=== PATIENT | female | born 1935 | race Caucasian/White ===

== ENCOUNTER 2017-11-01 12:17 | Inpatient (IN) | payer MEDICARE, SELFPAY ==
[~2017-11-01] VITALS: Ht 149.9 cm; Wt 69.6 kg
[~2017-11-01 12:17] MED LIST: ALBU90OI61 INH; ASPI325 PO; CLOP75 PO; ELOCON15 GM TOP; FAMO20 PO; FLONASE ALLERG9.9 ML; FLUT.05NI; FURO20 PO; Flonase 0.05% N16 GM; HYDACE5 PO; LEVSOD100 PO; LEVSOD75 PO; LISHYD1012 PO; LIVALO2 MG PO; OMEP20ER PO; ONDA8; OXYACE5T PO; PAXIL40 MG PO; POTA10T PO; Percocet 5-3251 EACH PO; ROPI2 PO; VICODIN 5-3001 EACH PO; Ventolin Soln3 ML INH; Verotin-Gr Cap1 EACH PO
[2017-11-02 06:01] LABS: BASOPHILS ABSOLUTE AUTO 0.02 K/mm3 (0.00-0.23); BASOPHILS PERCENT AUTO 0 % (0-2); EOSINOPHILS ABSOLUTE AUTO 0.13 K/mm3 (0.00-0.68); EOSINOPHILS PERCENT AUTO 1 % (0-6); Hematocrit 33.5 % (33.0-51.0); Hemoglobin 10.8 g/dL (11.5-16.0); IMMATURE GRAN ABSOLUTE AUTO 0.03 K/mm3 (0.00-0.10); IMMATURE GRAN PERCENT AUTO 0 % (0-1); LYMPHOCYTES PERCENT AUTO 15 % (21-46); MONOCYTES ABSOLUTE AUTO 1.21 K/mm3 (0.16-1.47); MONOCYTES PERCENT AUTO 13 % (4-13); Mean Corpuscular HGB 29.6 pg (26.0-34.0); Mean Corpuscular HGB Conc 32.2 g/dL (31.5-36.5); Mean Corpuscular Volume 92 fL (80-100); Mean Platelet Volume 8.7 fL (9.1-12.4); NEUTROPHILS ABSOLUTE AUTO 6.55 K/mm3 (1.96-9.15); NEUTROPHILS PERCENT AUTO 70 % (41-73); Platelet Count 293 K/mm3 (150-400); RDW Coefficient Variation 13.4 % (11.7-14.2); RDW Standard Deviation 44.7 fL (35.1-46.3); Red Blood Cell Count 3.65 M/mm3 (3.80-5.20); White Blood Cell Count 9.34 K/mm3 (4.00-11.30)
[2017-11-02 06:21] LABS: Bun/Creatinine Ratio 20.9 (12.0-20.0); Calcium, Blood 9.2 mg/dL (8.5-10.1); Creatinine, Blood 1.1 mg/dL (0.40-1.00); Potassium, Blood 4.3 mmol/L (3.5-5.5)
[2017-11-05 10:50] LABS: Anion Gap 8 mmol/L (6-16); Blood Urea Nitrogen 23 mg/dL (8-24); Bun/Creatinine Ratio 29.3 (12.0-20.0); CO2, Blood 27 mmol/L (21-32); Calcium, Blood 9.3 mg/dL (8.5-10.1); Chloride, Blood 102 mmol/L (98-108); Creatinine, Blood 0.79 mg/dL (0.40-1.00); Glomerular Filtration Rate >60 (60-); Glucose, Blood 132 mg/dL (70-99); Potassium, Blood 3.8 mmol/L (3.5-5.5); Sodium, Blood 137 mmol/L (136-145)
== END 2017-11-07 14:13 | DRG 504 ==
LOC: ORSCMMR 12:17 → ORSCSDS 15:00 → SURS 16:21 → ORSCMMR 16:21 → ENPENDDIS 11-07 12:07 → SURS 11-07 14:13
PROVIDERS: Internal Medicine; Podiatrist Foot & Ankle Surgery
PROC: 0QBL0ZZ Excision of Right Tarsal, Open Approach (ICD-10-PCS; principal; 2017-11-01 14:10)
DX: M14.671 Charcot's joint, right ankle and foot (principal); L97.419 Non-pressure chronic ulcer of right heel and midfoot with unspecified severity; G62.9 Polyneuropathy, unspecified; E03.9 Hypothyroidism, unspecified; I25.2 Old myocardial infarction; I25.10 Atherosclerotic heart disease of native coronary artery without angina pectoris; K21.9 Gastro-esophageal reflux disease without esophagitis; E74.39 Other disorders of intestinal carbohydrate absorption; J44.9 Chronic obstructive pulmonary disease, unspecified; G25.81 Restless legs syndrome; I12.9 Hypertensive chronic kidney disease with stage 1 through stage 4 chronic kidney disease, or unspecified chronic kidney disease; N18.2 Chronic kidney disease, stage 2 (mild); Z79.02 Long term (current) use of antithrombotics/antiplatelets; Z79.891 Long term (current) use of opiate analgesic; Z79.51 Long term (current) use of inhaled steroids; Z79.899 Other long term (current) drug therapy; Z88.1 Allergy status to other antibiotic agents; Z95.5 Presence of coronary angioplasty implant and graft; Z88.5 Allergy status to narcotic agent; Z88.8 Allergy status to other drugs, medicaments and biological substances
CPT/HCPCS: 36415; 73620; 80048; 85025; 88304; 88311; 94760; 97161; 97530; G8978; G8979; J0171; J0690; J1650; J2250; J2405; J3010; J7030; J7050; J7120

== ENCOUNTER → 2018-12-27 | Outpatient (CLI) | payer MEDICARE ==
[2018-12-27 12:11] LABS: BASOPHILS ABSOLUTE AUTO 0.05 K/mm3 (0.00-0.23); BASOPHILS PERCENT AUTO 1 % (0-2); EOSINOPHILS ABSOLUTE AUTO 0.51 K/mm3 (0.00-0.68); EOSINOPHILS PERCENT AUTO 7 % (0-6); Hematocrit 30.2 % (33.0-51.0); Hemoglobin 9.7 g/dL (11.5-16.0); IMMATURE GRAN ABSOLUTE AUTO 0.02 K/mm3 (0.00-0.10); IMMATURE GRAN PERCENT AUTO 0 % (0-1); LYMPHOCYTES ABSOLUTE AUTO 1.33 K/mm3 (0.84-5.20); LYMPHOCYTES PERCENT AUTO 19 % (21-46); MONOCYTES ABSOLUTE AUTO 0.94 K/mm3 (0.16-1.47); MONOCYTES PERCENT AUTO 13 % (4-13); Mean Corpuscular HGB 28.7 pg (26.0-34.0); Mean Corpuscular HGB Conc 32.1 g/dL (31.5-36.5); Mean Corpuscular Volume 89 fL (80-100); Mean Platelet Volume 9.2 fL (9.1-12.4); NEUTROPHILS ABSOLUTE AUTO 4.26 K/mm3 (1.96-9.15); NEUTROPHILS PERCENT AUTO 60 % (41-73); Platelet Count 305 K/mm3 (150-400); RDW Coefficient Variation 13.4 % (11.7-14.2); RDW Standard Deviation 43.7 fL (35.1-46.3); Red Blood Cell Count 3.38 M/mm3 (3.80-5.20); White Blood Cell Count 7.11 K/mm3 (4.00-11.30)
[2018-12-27 12:44] LABS: Albumin, Blood 3.5 g/dL (3.4-5.0); Bilirubin, Total 0.4 mg/dL (0.1-1.0); Bun/Creatinine Ratio 17.8 (12.0-20.0); Calcium, Blood 9.1 mg/dL (8.5-10.1); Creatinine, Blood 1.8 mg/dL (0.40-1.00); Globulin, Blood 3.5 g/dL (2.2-4.0); Potassium, Blood 4.1 mmol/L (3.5-5.5)
== END | disposition home or self-care (01) ==
LOC: LAB SHORT 11:54 → LAB EV 11:54
PROVIDERS: Physician Assistant Medical
DX: N39.0 Urinary tract infection, site not specified (principal); R60.0 Localized edema
CPT/HCPCS: 80053; 85025; 85379; 87086

== ENCOUNTER 2019-02-12 23:10 | Emergency (ER) | payer MEDICARE, OTHER ==
[~2019-02-12] VITALS: Ht 147.3 cm; Wt 73.5 kg
[2019-02-12 23:42] LABS: BASOPHILS ABSOLUTE AUTO 0.05 K/mm3 (0.00-0.23); BASOPHILS PERCENT AUTO 1 % (0-2); EOSINOPHILS PERCENT AUTO 9 % (0-6); Hematocrit 28.1 % (33.0-51.0); Hemoglobin 8.5 g/dL (11.5-16.0); IMMATURE GRAN ABSOLUTE AUTO 0.02 K/mm3 (0.00-0.10); IMMATURE GRAN PERCENT AUTO 0 % (0-1); LYMPHOCYTES ABSOLUTE AUTO 1.02 K/mm3 (0.84-5.20); LYMPHOCYTES PERCENT AUTO 14 % (21-46); MONOCYTES ABSOLUTE AUTO 1.04 K/mm3 (0.16-1.47); MONOCYTES PERCENT AUTO 14 % (4-13); Mean Corpuscular HGB 28.3 pg (26.0-34.0); Mean Corpuscular HGB Conc 30.2 g/dL (31.5-36.5); Mean Corpuscular Volume 94 fL (80-100); NEUTROPHILS ABSOLUTE AUTO 4.65 K/mm3 (1.96-9.15); NEUTROPHILS PERCENT AUTO 62 % (41-73); Platelet Count 340 K/mm3 (150-400); RDW Coefficient Variation 14.5 % (11.7-14.2); RDW Standard Deviation 49.8 fL (35.1-46.3); White Blood Cell Count 7.48 K/mm3 (4.00-11.30)
[2019-02-12] MEDS ORDERED: BUPR75 PO (23:58)
[2019-02-12] MEDS ORDERED: ELIQUIS5 MG PO (23:58)
[2019-02-13 00:01] LABS: Albumin, Blood 3.4 g/dL (3.4-5.0); Bilirubin, Total 0.2 mg/dL (0.1-1.0); Bun/Creatinine Ratio 18.6 (12.0-20.0); Calcium, Blood 9.1 mg/dL (8.5-10.1); Creatinine, Blood 1.88 mg/dL (0.40-1.00); Globulin, Blood 3.4 g/dL (2.2-4.0); Potassium, Blood 4.1 mmol/L (3.5-5.5); Total Protein, Blood 6.8 g/dL (6.4-8.2)
[2019-02-13] MEDS ORDERED: BENADRYL25 MG PO (00:53)
[2019-02-13] MEDS ORDERED: Pepcid20 MG PO (00:53)
[2019-02-13] MEDS ORDERED: Prednisone20 MG PO (00:53)
== END 2019-02-13 01:32 | disposition home or self-care (01) ==
LOC: ER 23:10
PROVIDERS: Emergency Medicine
DX: T78.40XA Allergy, unspecified, initial encounter (principal); N18.9 Chronic kidney disease, unspecified; D63.8 Anemia in other chronic diseases classified elsewhere; J44.9 Chronic obstructive pulmonary disease, unspecified; E03.9 Hypothyroidism, unspecified; F17.210 Nicotine dependence, cigarettes, uncomplicated; Z79.899 Other long term (current) drug therapy; X58.XXXA Exposure to other specified factors, initial encounter
CPT/HCPCS: 36415; 71046; 80053; 83880; 85025; 93005; 93010; 94640; 96374; 96375; 99283-25; J1200; J2930

== ENCOUNTER 2019-04-06 11:52 | Inpatient (IN) | payer MEDICARE, OTHER ==
[~2019-04-06] VITALS: Ht 147.3 cm; Wt 65.2 kg
[~2019-04-06 11:52] MED LIST changes: +BENADRYL25 MG PO; +BUPR75 PO; +ELIQUIS5 MG PO; +Nystatin15 GM TOP; +Pepcid20 MG PO; +Prednisone20 MG PO; -ROPI2 PO; +Ropinirole HCl1 MG PO; +WARF5 PO; +ZYRTEC10 M2 PO
[2019-04-06 12:27] LABS: Hemoglobin 7.2 g/dL (11.5-16.0); Mean Corpuscular HGB 25.8 pg (26.0-34.0); Mean Corpuscular Volume 86 fL (80-100); NRBC ABSOLUTE 0.79 K/mm3 (0.00-0.02); NRBC Auto 2.3 /100 WBC (0.0-0.2); Platelet Count 529 K/mm3 (150-400); RDW Coefficient Variation 15.8 % (11.7-14.2); RDW Standard Deviation 49.1 fL (35.1-46.3); Red Blood Cell Count 2.79 M/mm3 (3.80-5.20); White Blood Cell Count 34.59 K/mm3 (4.00-11.30)
[2019-04-06 12:48] LABS: Prothrombin Time Results 47.6 Sec (9.7-11.5)
[2019-04-06 12:49] LABS: PCO2 Arterial 35.4 mmHg (35-45); PO2 Arterial 58.3 mmHg (80-100)
[2019-04-06 12:52] LABS: Albumin, Blood 2.6 g/dL (3.4-5.0); Albumin/Globulin Ratio 0.7 (0.8-1.8); Bilirubin, Total 0.4 mg/dL (0.1-1.0); Bun/Creatinine Ratio 38.5 (12.0-20.0); Calcium, Blood 9.7 mg/dL (8.5-10.1); Creatinine, Blood 1.87 mg/dL (0.40-1.00); Globulin, Blood 3.9 g/dL (2.2-4.0); Potassium, Blood 4.4 mmol/L (3.5-5.5); Total Protein, Blood 6.5 g/dL (6.4-8.2); Troponin I 0.117 ng/mL (0.000-0.040)
[2019-04-06 12:53] LABS: BAND PERCENT MAN 1 % (0-8); BASOPHILS PERCENT MAN 0 % (0-2); EOSINOPHILS ABSOLUTE MAN 0.34 K/mm3 (0.00-0.68); EOSINOPHILS PERCENT MAN 1 % (0-6); LYMPHOCYTES ABSOLUTE MAN 2.76 K/mm3 (0.84-5.20); LYMPHOCYTES PERCENT MAN 8 % (21-46); MONOCYTES ABSOLUTE MAN 1.03 K/mm3 (0.16-1.47); MONOCYTES PERCENT MAN 3 % (4-13); MYELOCYTE ABSOLUTE MAN 0.34 K/mm3 (0.00-0.00); MYELOCYTE PERCENT MAN 1 % (0-0); NEUTROPHILS ABSOLUTE MAN 30.09 K/mm3 (1.96-9.15); SEG NEUTROPHILS PERCENT MAN 86 % (41-73); TOTAL CELLS COUNTED 100
[2019-04-06 12:57] LABS: International Normalized Ratio 5.22
[2019-04-06] MEDS ORDERED: FAMO20 PO (13:59)
[2019-04-06] MEDS ORDERED: GABA300 PO (14:00)
--- NOTE | 2019-04-06 16:30 | NUR ---
ADMIT TO ICU, ROOM 12, VIA DEIRDRE FROM ER: DX--RLL PNEUM, SEPSIS, HYPOXIA, ACUTE KIDNEY INJURY, SEVERE ANEMIA AND C. ISCHEMIA. PATIENT A/O X3; DENIES PAIN EXCEPT WITH MOVEMENT. ARTHRITIC PAIN AND PAIN TO FEET D/T BONE ISSUES; NO OPENED SKIN. LUNGS COARSE AND COUGH MOIST AND PRODUCTIVE; HAVING LARGE AMOUNTS OF PHLEGM AND SPITS INTO KLEENEX. OXYGEN AT 4L/MIN VIA NC. SEVERE EXERTIONAL HYPOXIA EVEN WITH OXYGEN. INR PROLONGED AND COUMADIN ON HOLD SINCE MONDAY. BNP AROUND 1500; NO IVF'S GIVEN OTHER THAN ANTIBIOTICS. ANEMIC AND TO RECEIVE BLOOD TRANSFUSIONS. DR. FINK ARRIVED SHORTLY AFTER ARRIVAL TO ICU; SEE MULTIPLE ORDERS. EDEMA TO LE'S ABOUT 2-3 + PITTING; DAUGHTER, HARMONY, STATES PATIENTS' LEGS ARE USUALLY 2X LARGER/SWOLLEN.
--- NOTE | 2019-04-06 18:00 | NUR ---
HUTTON CATHETER PLACED (16FR) WITHOUT INCIDENT; PATIENT TRIED TO VOID ON BEDPAN SEVERAL TIMES SINCE ARRIVAL TO ICU AND UNABLE TO VOID; TO RECEIVE DIURETIC THERAPY SOON; ORDER OK'D FOR HUTTON CATHETER; PATIENT WITH SEVERE HYPOXIA WITH ANY EXERTION (TO INCLUDE SPEAKING). POST CATH. UA SENT TO LAB.
[2019-04-06 18:43] LABS: Source, Urine Catheter
--- NOTE | 2019-04-06 18:45 | NUR ---
DAUGHTER WENT HOME; PATIENT EATING CARDIAC DINNER. OXYMIZER AT 7L/MIN AND INCREASED TO 10L/MIN DURING MEAL; BIOX 89-91%. SBP LOW 90'S TO LOW 100'S; HR 90'S. WILL REPORT TO ONCOMING RN.
[2019-04-06 19:05] LABS: Appearance, Urine Clear (Clear); Bilirubin, Urine Neg (Neg); Blood, Urine 1+ (Neg); Color, Urine Yellow (P-Yellow); Glucose Qualitative, Urine Neg (Neg); Ketones, Urine Neg (Neg); Leukocyte Esterase, Urine Neg (Neg); Nitrite, Urine Neg (Neg); Protein, Urine 1+ (Neg); Specific Gravity, Urine 1.015 (1.003-1.022); Urobilinogen, Urine NORM (Normal)
[2019-04-06 19:16] LABS: Hematocrit 23.7 % (33.0-51.0)
[2019-04-06 19:44] LABS: Squamous Epithelial Cells Few /hpf (Few)
[2019-04-06 19:45] LABS: Bacteria Few /hpf; Red Blood Cells, Urine 0-2 /hpf (0-2); White Blood Cells, Urine 0-2 /hpf (0-5)
[2019-04-06 19:46] LABS: Creatine Kinase MB 7.4 ng/mL (0.0-3.6); Creatine Kinase MB Index 13.7 (0.0-4.0)
[2019-04-06 19:55] LABS: Thyroid Stimulating Hormone 0.278 uIU/mL (0.360-4.800)
--- NOTE | 2019-04-06 20:03 | NUR ---
PT RESTING IN BED. GETS SOB WITH TALKING OR ANY EXERTION. ON 10L HIGH FLOW NC. PRBC'S STARTED. SEE ASSESSMENT.
[2019-04-06 20:21] LABS: Troponin I 0.594 ng/mL (0.000-0.040)
[2019-04-07 04:04] LABS: Hematocrit 28.5 % (33.0-51.0); Hemoglobin 9.3 g/dL (11.5-16.0)
[2019-04-07 04:05] LABS: BASOPHILS ABSOLUTE AUTO 0.05 K/mm3 (0.00-0.23); BASOPHILS PERCENT AUTO 0 % (0-2); EOSINOPHILS PERCENT AUTO 0 % (0-6); Hematocrit 28.6 % (33.0-51.0); Hemoglobin 9.2 g/dL (11.5-16.0); IMMATURE GRAN ABSOLUTE AUTO 1.35 K/mm3 (0.00-0.10); IMMATURE GRAN PERCENT AUTO 5 % (0-1); LYMPHOCYTES ABSOLUTE AUTO 1.12 K/mm3 (0.84-5.20); LYMPHOCYTES PERCENT AUTO 4 % (21-46); MONOCYTES PERCENT AUTO 4 % (4-13); Mean Corpuscular HGB 26.8 pg (26.0-34.0); Mean Corpuscular HGB Conc 32.2 g/dL (31.5-36.5); Mean Platelet Volume 8.8 fL (9.1-12.4); NEUTROPHILS ABSOLUTE AUTO 23.93 K/mm3 (1.96-9.15); NEUTROPHILS PERCENT AUTO 87 % (41-73); NRBC ABSOLUTE 0.53 K/mm3 (0.00-0.02); NRBC Auto 1.9 /100 WBC (0.0-0.2); Platelet Count 314 K/mm3 (150-400); RDW Coefficient Variation 15.6 % (11.7-14.2); RDW Standard Deviation 46.9 fL (35.1-46.3); Red Blood Cell Count 3.43 M/mm3 (3.80-5.20); White Blood Cell Count 27.55 K/mm3 (4.00-11.30)
[2019-04-07 04:07] LABS: Mean Corpuscular Volume 83 fL (80-100)
[2019-04-07 04:27] LABS: Albumin, Blood 2.3 g/dL (3.4-5.0); Albumin/Globulin Ratio 0.6 (0.8-1.8); Bilirubin, Total 0.7 mg/dL (0.1-1.0); Bun/Creatinine Ratio 36.6 (12.0-20.0); Calcium, Blood 9.1 mg/dL (8.5-10.1); Creatinine, Blood 1.75 mg/dL (0.40-1.00); Globulin, Blood 3.8 g/dL (2.2-4.0); Magnesium, Blood 2.1 mg/dL (1.6-2.4); Prothrombin Time Results 55.5 Sec (9.7-11.5); Total Protein, Blood 6.1 g/dL (6.4-8.2)
[2019-04-07 04:32] LABS: International Normalized Ratio 6.18
[2019-04-07 04:38] LABS: Creatine Kinase MB 6.7 ng/mL (0.0-3.6); Creatine Kinase MB Index 15.2 (0.0-4.0)
[2019-04-07 04:41] LABS: Troponin I 1.24 ng/mL (0.000-0.040)
--- NOTE | 2019-04-07 05:58 | NUR ---
SUMMARY PT RESTING IN BED. A/O X4. DENIES PAIN. GETS SOB WITH ANY EXERTION OR TALKING AND DESATS TO 88%. RECEIVED 2 UNITS OF PRBC'S WITH A DOSE OF LASIX IN BETWEEN UNITS. SPOKE WITH DR. AUGUSTIN ABOUT TROPONIN AND INR THIS AM. HE SAID TO KEEP MONITORING HER AND LABS FOR NOW. NO SIGN OF BLEEDING. NO SIGN OF DISTRESS. CALL LIGHT IN REACH.
[2019-04-07 07:13] LABS: Adenovirus Not Detected (NOT DETECT); Bordetella pertussis Not Detected (NOT DETECT); Chlamydophila pneumoniae Not Detected (NOT DETECT); Coronavirus 229E Not Detected (NOT DETECT); Coronavirus HKU1 Not Detected (NOT DETECT); Coronavirus NL63 Not Detected (NOT DETECT); Coronavirus OC43 Not Detected (NOT DETECT); Human Metapneumovirus Not Detected (NOT DETECT); Human Rhinovirus/Enterovirus Not Detected (NOT DETECT); Influenza A Not Detected (NOT DETECT); Influenza A/2009-H1 Not Detected (NOT DETECT); Influenza A/H1 Not Detected (NOT DETECT); Influenza A/H3 Not Detected (NOT DETECT); Influenza B Not Detected (NOT DETECT); Mycoplasma pneumoniae Not Detected (NOT DETECT); Parainfluenza Virus 1 Not Detected (NOT DETECT); Parainfluenza Virus 2 Not Detected (NOT DETECT); Parainfluenza Virus 3 Not Detected (NOT DETECT); Parainfluenza Virus 4 Not Detected (NOT DETECT); Respiratory Syncytial Virus Not Detected (NOT DETECT)
--- NOTE | 2019-04-07 07:15 | NUR ---
ASSUMED CARE OF PATIENT; SEE ASSESSMENT CHARTING FOR DETAILS. PATIENT A/O; DENIES ACUTE DISCOMFORT. CONTINUES WITH MOIST/PRODUCTIVE COUGH. COUGHED UP SPOT OF BLOOD ONTO TISSUE; RN PUT IN CUP TO SHOW PHYSICIAN. REMAINS WITH HIGH FLOW OXYGEN AT 10L/MIN; BIOX 89-91%; DROPS DOWN WITH ANY EXERTION. HUTTON DRAINING MOD. AMOUNTS OF LT. YELLOW URINE. INR INCREASED FROM YESTERDAY; NO COUMADIN GIVEN. PATIENTS' DAUGHTER FROM OUT OF STATE TO ARRIVE TODAY.
[2019-04-07 10:06] LABS: Hematocrit 28.1 % (33.0-51.0); Hemoglobin 9.1 g/dL (11.5-16.0)
--- NOTE | 2019-04-07 10:22 | NUR ---
echocardiogram completed
--- NOTE | 2019-04-07 12:00 | NUR ---
DR. BANKS HERE; SEE ORDERS.
--- NOTE | 2019-04-07 18:46 | NUR ---
SUMMARY: OVERALL STATUS IMPROVED; REMAINS ON 10L/HIGH FLOW OXYGEN; BIOX 89-93% COMPARED WITH 87-91% PREVIOUSLY. DANGLED AND STOOD WITH ASSIST OF P.T.; REQUIRED FREQUENT REST PERIODS D/T HYPOXIC MOMENTS. FEEDS SELF; APPETITE FAIR AND NO GI UPSET. HUTTON PUT OUT 1725; LT. YELLOW TO CLEAR URINE. ECHOCARDIOGRAM SHOWED 35-40% E.F.. DAUGHTERS AND GRAND-DAUGHTER VISITED THIS EVENING; STAYED FOR AWHILE BUT DID NOT WANT TO TIRE PATIENT. WILL REPORT TO ONCOMING RN.
--- NOTE | 2019-04-07 19:15 | NUR ---
ASSUMED CARE OF PT, REPORT RECEIVED. PT IS RESTING QUIETLY RECLINING IN BED, SPEAKING IN FULL SENTANCES HOWEVER INCREASED WORK OF BREATHING IS NOTED WITH PT ATTEMPT TO REPOSITION SELF IN BED. SATS DECREASE TO 84-85% WITH CONVERSATION AND PT REPOSITION, RECOVER TO HIGH 90S WITHIN 5 MINUTES, OXYGEN VIA HIGH FLOW NASAL CANNULA AT 10 L/MIN, PT STATES THAT BREATHING FEELS IMPROVED TODAY, DENIES FEELING SOB AT REST, LUNGS CONTINUE WITH COARSE SOUNDS RIGHT MID TO LOWER LOBE, CONGESTED COUGH CONTINUES TO BE PRODUCTIVE OF GREEN SPUTUM. DENIES CP/PRESSURE, HRR, SINUS ON MONITOR, RATE 90S TO LOW 100S WITH INCREASE IN ACTIVITY, PRESSURE MAINTAINING, PULSES FULL X 4, SKIN WARM AND DRY, BRISK CAP REFILL NOTED, EDEMA IMPROVED PER PT. ACTIVE BOWEL TONES X 4, ABD SOFT, NO GRIMACING WITH PALPATION, PT DENIES N/V. HUTTON CATH IN PLACE DRAINING CLEAR PALE YELLOW URINE TO GRAVITY, LASIX IV ADMIN BY OFFGOING RN.
[2019-04-08 04:09] LABS: BASOPHILS ABSOLUTE AUTO 0.03 K/mm3 (0.00-0.23); BASOPHILS PERCENT AUTO 0 % (0-2); EOSINOPHILS ABSOLUTE AUTO 0.22 K/mm3 (0.00-0.68); EOSINOPHILS PERCENT AUTO 1 % (0-6); Hematocrit 29.4 % (33.0-51.0); Hemoglobin 9.5 g/dL (11.5-16.0); IMMATURE GRAN ABSOLUTE AUTO 1.15 K/mm3 (0.00-0.10); IMMATURE GRAN PERCENT AUTO 5 % (0-1); LYMPHOCYTES ABSOLUTE AUTO 1.18 K/mm3 (0.84-5.20); LYMPHOCYTES PERCENT AUTO 5 % (21-46); MONOCYTES PERCENT AUTO 4 % (4-13); Mean Corpuscular HGB 27.5 pg (26.0-34.0); Mean Corpuscular HGB Conc 32.3 g/dL (31.5-36.5); Mean Corpuscular Volume 85 fL (80-100); Mean Platelet Volume 9.3 fL (9.1-12.4); NEUTROPHILS ABSOLUTE AUTO 19.02 K/mm3 (1.96-9.15); NEUTROPHILS PERCENT AUTO 84 % (41-73); NRBC ABSOLUTE 0.21 K/mm3 (0.00-0.02); NRBC Auto 0.9 /100 WBC (0.0-0.2); Platelet Count 240 K/mm3 (150-400); RDW Standard Deviation 48.7 fL (35.1-46.3); Red Blood Cell Count 3.46 M/mm3 (3.80-5.20)
[2019-04-08 04:20] LABS: International Normalized Ratio 1.29; Prothrombin Time Results 13.4 Sec (9.7-11.5)
[2019-04-08 04:31] LABS: Bun/Creatinine Ratio 33.8 (12.0-20.0); Calcium, Blood 8.7 mg/dL (8.5-10.1); Creatinine, Blood 1.57 mg/dL (0.40-1.00); Potassium, Blood 3.2 mmol/L (3.5-5.5)
[2019-04-08 04:41] LABS: Troponin I 1.03 ng/mL (0.000-0.040)
--- NOTE | 2019-04-08 06:13 | NUR ---
PT RESTS QUIETLY THROUGHOUT SHIFT, REPOSITIONS SELF FREQUENTLY, REQUESTS ASSISTANCE PRN. C/O GENERALIZED ARTHRITIS PAIN THIS AM RATED AT 5/10, TYLENOL ADMIN WILL REASSESS. SATS MAINTAINED 92-95% WITH OXYGEN AT 10 L/MIN VIA HIGH FLOW NASAL CANNULA WHEN PT IS AT REST, SATURATIONS DROP TO MID TO UPPER 80S WITH INCREASE IN CONVERSATION OR ACTIVITY, PT IS NOTED TO REQUIRE APPROXIMATELY 5 MINUTES FOR SATS TO RECOVER, RIGHT LUNG SOUNDS CONTINUE COARSE MID TO BASE, PRODUCTIVE COUGH CONTINUES. PT DOES CONTINUE TO STATE THAT BREATHING IS FEELING IMPROVED. CONTINUES IN SINUS RHYTHM, RATE 70-100S, OCCASIONAL PVCS AND PACS ARE NOTED, PRESSURE MAINTAINING, EDEMA IMPROVED, PT REPORTS "LEGS ARE SKINNY" URINE OUTPUT 2000 ML THIS SHIFT, DAILY WEIGHT DECREASED 2.7 KG FROM ADMISSION.
--- NOTE | 2019-04-08 08:00 | NUR ---
ASSESSMENT- Pt. a/o x3. Denies pain. In no acute Resp distress on 10LT/HI Flow NC, Monitor denotes SR with PAC's. VS adeq.
--- NOTE | 2019-04-08 10:00 | NUR ---
Report given to Luba Saucedo RN
--- NOTE | 2019-04-08 11:25 | NUR ---
ASSUMED CARE: ASSUMED CARE FROM DINORAH CABAN, RN AT 0945. PT WAS UP IN THE BRIGIDA, WORKED WITH PHYSCIAL THERAPY WHO GOT HER BACK TO BED. PT WENT FOR 2 VIEW XRAY WITH RN AND TOLERATED IT WELL. PT'S FAMILY IN THE ROOM AND WAS UPDATED BY DR. BANKS. CONTINUING TO MONITOR.
--- NOTE | 2019-04-08 14:06 | NUR ---
REASSESSMENT: PT SITTING AT THE EOB EATING LUNCH. PT'S DAUGHTERS AT THE BEDSIDE AND WERE ABLE TO TALK WITH DR. BANKS ON HIS ROUNDS TODAY. PT REMAINS ALERT AND ORIENTED. LUNGS ARE COARSE IN THE BASES, EXP WHEEZE ON THE L SIDE. STILL REQUIRING 10L/HI JUDY NC AND DESATS TO THE 80S WITH ACTIVITY AND TAKES ABOUT 5 MINUTES TO RECOVER. SR WITH LOTS OF PAC AND RARE PVC, BP STABLE. HUTTON WITH LIGHT YELLOW URINE. TYLENOL GIVEN FOR GENERALIZED PAIN, NO OTHER REQUESTS. CONTINUING TO MONITOR.
--- NOTE | 2019-04-08 16:55 | NUR ---
Per admit trigger, I met with Mrs. Rivera to offer information regarding an Advanced Directive. She was being visited by two of her daughters. One of them informed me that pt's PCP has a copy of Carmen's AD, and she immediately called this physician's office to have it faxed to [facility] Medical Records. Mrs. Rivera appears well-loved and cared-for. She feels "much better" and hopes to be discharged soon. No concerns or needs presented. I will remain available.
--- NOTE | 2019-04-08 17:15 | NUR ---
SHIFT SUMMARY: PT HAS BEEN RESTING IN BED TAKING A NAP THIS AFTERNOON. SHE CONTINUES TO REQUIRE 10L/HI JUDY NC TO KEEP SPO2 GREATER THAN 90. LUNGS ARE STILL COARSE WITH OCCASIONALY WHEEZES. PT STATES SHE FEELS LIKE SHE IS BREATHING MUCH BETTER. BPS TABLE, SR WITH FREQUENT PAC AND OCC PVC. HUTTON WITH CL YELLOW URINE. PT WORKED WITH PHYSICAL THERAPY TODAY AND GOT UP TO THE CHAIR. HER DAUGHTERS WERE IN AND HAVE BEEN UPDATED. ALL QUESTIONS HAVE BEEN ANSWERED.
--- NOTE | 2019-04-08 19:15 | NUR ---
ASSUMED CARE OF PT, REPORT RECEIVED. PT IS RESTING QUIETLY RECLINING IN BED, DENIES NEEDS AT THIS TIME, FAMILY IN FOR VISIT, PT IS CONVERSING IN FULL SENTANCES, SATS MAINTAINING, WILL CONTINUE ASSESSMENT WHEN PT IS DONE VISITING WITH DAUGHTER.
--- NOTE | 2019-04-08 20:45 | NUR ---
PT CONTINUES RESTING QUIETLY AT THIS TIME, SATS MAINTAINING 93-94%, SPEAKING IN FULL SENTANCES AND STATES THAT BREATHING FEELS MUCH IMPROVED TODAY. SHE SMILES AND LAUGHS AND SHOWS THIS RN HER LEGS AND STATES "THEY'RE SKINNY I'VE EVER SEEN THEM." SATS ARE NOTED TO MAINTAIN GREATER THAN 88% WITH CONVERSATION HELD DURING ASSESSMENT AND SMALL INCREASE IN ACTIVITY SUCH ROLLING SIDE TO SIDE FOR DRAW SHEET REPOSITIONING. LUNG SOUNDS ARE IMPROVED, COARSE CRACKLES CONTINUE TO RIGHT BASE AND LEFT BASE IS DIMINISHED, OTHERWISE CLEAR AT THIS TIME, OXYGEN CONTINUES AT 10 L/MIN VIA HIGH FLOW NASAL CANNULA. HRR, RATE LOW 100S WITH ACTIVITY INCREASE, OCCASIONAL PVCS AND PACS ARE NOTED, PRESSURE CONTINUES TO MAINTAIN, PULSES REMAIN FULL X 4 EXTREMITIES WITH BRISK CAP REFILL. ABD REMAINS SOFT TO PALPATION, NORMOACTIVE BOWEL TONES CONTINUE. HUTTON CATH REMAINS IN PLACE DRAINING CLEAR PALE YELLOW URINE TO GRAVITY. PT STATES THAT SHE DID NOT SLEEP WELL LAST NOC SECONDARY TO HAVING NIGHTMARES, WILL ATTEMPT TO MAXIMIZE SLEEP FOR PT THIS SHIFT.
[2019-04-09 03:56] LABS: Calcium, Blood 8.8 mg/dL (8.5-10.1); Creatinine, Blood 1.62 mg/dL (0.40-1.00); Magnesium, Blood 1.6 mg/dL (1.6-2.4); Potassium, Blood 3.4 mmol/L (3.5-5.5)
--- NOTE | 2019-04-09 06:10 | NUR ---
PT RESTS QUIETLY THIS SHIFT, C/O INCREASING ARTHRITIS PAIN TO "ALL MY JOINTS" TYLENOL ADMIN X 2 THIS SHIFT. SATS IMPROVED THIS AM 96-99% AT THIS TIME, WILL ATTEMPT TO TITRATE OXYGEN DOWN SLOWLY, LUNG SOUNDS REMAIN IMPROVED, COUGH CONTINUES. SINUS RHYTHM CONTINUES WITH OCCASIONAL PVCS, FREQUENT PACS ARE NOTED, PRESSURE MAINTAINING. NO ACUTE CHANGES THIS SHIFT.
--- NOTE | 2019-04-09 10:01 | NUR ---
AM CARE GIVEN TO PT BOTTOCKS AND TURNED TO SIDE. PT SLOW TO AWAKEN BUT A/O. PT DENIES PAIN OR DISTRESS AT THIS TIME. WILL MAKE NPO FOR POTENTIAL CARDIAC ORDERS, CONSULT CALLED AT [address] ZHONG.
--- NOTE | 2019-04-09 10:40 | NUR ---
PT RESTING WELL THIS AM AND REQUESTED TO EAT LATER. THIS WAS DONE AND AM MEDS WERE GIVEN. PT IS A/O AND DENIES CURRENT PAINS OR DISTRESS.
--- NOTE | 2019-04-09 11:48 | NUR ---
PT UP WITH OT TO CHAIR ONE PERSON. SATS DID DROP TO 85-7 RANGE BUT PT IS MOUTH BREATHER AND CHANGED CANUALA TO MOUTH AND SATS RETURNED TO 90-93 RANGE MUCH QUICKER THAN YESTERDAY STATES O.T.
--- NOTE | 2019-04-09 18:26 | NUR ---
PT IS AGAIN UP IN CHAIR PER PT TO EAT AND HAS DONE WELL ON 8L HFNC AND IS A NOTED MOUTH BREATHER. PT HAS BEEN PLEASANT AND HAS DENIES PAIN TODAY. PT HAS NOTED TO HAVE LIGHT GREEN SPUTUM AT TIMES BUT DENIES ANY RESP DISTRESS TODAY. I/O NOTED, VS NOTED .
--- NOTE | 2019-04-09 19:15 | NUR ---
ASSUMED CARE PT SITTING UP IN BED VISITING WITH FAMILY, PT A&OX4, CURRENTLY DENIES COMPLAINTS BUT WOULD LIKE A BATH TONIGHT. O2 VIA HFNC AT 8L, PT O2 SATS IN THE RULA 80'S WITH ANY ACTIVITY. + COUGH WITH SPUTUM PRODUCTION. ECG SHOWS SR WITH PAC'S O2 SAT 88-93, BP INITIALLY LOW, WILL RECHECK PRIOR TO HS MEDS.
[2019-04-10 03:49] LABS: BASOPHILS ABSOLUTE AUTO 0.06 K/mm3 (0.00-0.23); BASOPHILS PERCENT AUTO 0 % (0-2); EOSINOPHILS ABSOLUTE AUTO 0.65 K/mm3 (0.00-0.68); EOSINOPHILS PERCENT AUTO 3 % (0-6); Hematocrit 32.1 % (33.0-51.0); Hemoglobin 9.9 g/dL (11.5-16.0); IMMATURE GRAN ABSOLUTE AUTO 1.01 K/mm3 (0.00-0.10); IMMATURE GRAN PERCENT AUTO 4 % (0-1); LYMPHOCYTES ABSOLUTE AUTO 1.35 K/mm3 (0.84-5.20); LYMPHOCYTES PERCENT AUTO 6 % (21-46); MONOCYTES ABSOLUTE AUTO 1.21 K/mm3 (0.16-1.47); MONOCYTES PERCENT AUTO 5 % (4-13); Mean Corpuscular HGB 26.4 pg (26.0-34.0); Mean Corpuscular HGB Conc 30.8 g/dL (31.5-36.5); Mean Corpuscular Volume 86 fL (80-100); NEUTROPHILS ABSOLUTE AUTO 19.01 K/mm3 (1.96-9.15); NEUTROPHILS PERCENT AUTO 82 % (41-73); NRBC ABSOLUTE 0.03 K/mm3 (0.00-0.02); NRBC Auto 0.1 /100 WBC (0.0-0.2); Platelet Count 249 K/mm3 (150-400); RDW Coefficient Variation 16.8 % (11.7-14.2); RDW Standard Deviation 51.3 fL (35.1-46.3); Red Blood Cell Count 3.75 M/mm3 (3.80-5.20); White Blood Cell Count 23.29 K/mm3 (4.00-11.30)
[2019-04-10 04:06] LABS: Bun/Creatinine Ratio 35.9 (12.0-20.0); Calcium, Blood 8.8 mg/dL (8.5-10.1); Creatinine, Blood 1.7 mg/dL (0.40-1.00); Potassium, Blood 4.1 mmol/L (3.5-5.5)
--- NOTE | 2019-04-10 06:38 | NUR ---
SHIFT SUMMARY NO ACUTE EVENTS OVERNIGHT. PT REMAINS ON 8L/HFNC WITH O2 SATS IN THE MID TO LOW 90'S. IF O2 REMOVED OR WITH MINIMAL ACTIVITY, O2 SATS RAPIDLY DROP TO 70-80'S WITH AN EXTENDED RECOVERY TIME. AT PT REQUEST, REMOVED THIS AM. NO IV FLUIDS, VSS, ECG SHOWS SR WITH PAC'S.
--- NOTE | 2019-04-10 08:00 | NUR ---
INITIAL ASSESSMENT PATIENT RESTING QUIETLY IN BED UPON ENTERING ROOM. PATIENT ALERT AND ORIENTED X 4, FORGETFUL ON RARE OCCASION. PATIENT STATES SHE HAS CHRONIC PAIN FROM ARTHRITIS BUT THAT IT IS MANAGEABLE AT THIS TIME. PATIENT AFEBRILE. PATIENT WEAK- 1 PERSON ASSIST WITH GAIT BELT AND WALKER. PATIENT SATTING 90% AND OVER ON 8 L HF NC. LUNGS CLEAR IN THE UPPER LOBES. CRACKLES NOTED IN THE LOWER LOBES. PATIENT REPORTS OCCASIONAL, PRODUCTIVE COUGH- PRODUCING SMALL AMOUNT OF THICK, YELLOW SPUTUM. PATIENT DESATS QUICKLY WHEN SHE REMOVES HER O2 TO BLOW HER NOSE. PATIENT DYSPNEIC UPON EXERTION. PATIENT IN SR WITH OCCASIONAL PACS. HR 70S TO 80S. BP STABLE. ABDOMEN SOFT, NONTENDER, WITH HYPERACTIVE BS. PATIENT HAS NOT HAD BM SINCE THE 7TH BUT STATES "I HAVE A FEELING IT WILL BE COMING SOON". PATIENT DOES NOT WANT ANY BOWEL CARE AT THIS TIME. PATIENT HAD HUTTON REMOVED AROUND 0545 THIS AM- NO VOID YET. SKIN IS DRY AND FRAGILE. PATIENT HAS DEFORMED R TOES AND ANKLES- STATES IT IS FROM ARTHRITIS AND SURGERY. IV FLUSHED AND SALINE LOCKED. BED LOW, CALL LIGHT IN REACH. WILL CONTINUE TO MONITOR PATIENT FREQUENTLY THROUGHOUT SHIFT.
--- NOTE | 2019-04-10 12:00 | NUR ---
PATIENT SITTING UP IN CHAIR EATING LUNCH. NO COMPLAINTS AT THIS TIME. AFEBRILE. VITAL SIGNS STABLE. PATIENT HAS YET TO HAVE VOID SINCE HUTTON REMOVED AROUND 0545 THIS AM. BLADDER SCAN PERFORMED AND SHOWED 113 MLS OF URINE IN BLADDER. WILL CONTINUE TO MONITOR AT THIS TIME. NO OTHER ACUTE CHANGES TO NOTE ON AT THIS TIME.
--- NOTE | 2019-04-10 15:14 | NUR ---
SHIFT SUMMARY PATIENT REMAINED ALERT AND ORIENTED, AFEBRILE. PATIENT REQUESTED PRN TYLENOL OT THIS SHIFT FOR COMPLAINT OF PAIN "ALL OVER FROM ARTHRITIS"- PATIENT REPORTED RELIEF AFTER. PATIENT WEAK, ABLE TO TRANSFER 1 PA WITH GAITBELT AND WALKER- PATIENT NEEDS ENCOURAGEMENT TO STAND UP STRAIGHT. PATIENT HAS BOOT FOR RIGHT FOOT TO USE DURING AMBULATION BONES OF FEET AND TOES ARE DEFORMED. PATIENT HAS REMAINED ON 8 L HF NC TO KEEP SATS 90% AND ABOVE. PATIENT REMAINS DESATTING QUICKLY WHEN SHE TAKES OFF. PATIENT HAS REMAINED IN SR WITH OCCASIONAL PACS, HR 70S TO 80S. BP HAS REMAINED STABLE. PATIENT DID NOT HAVE A BM THIS SHIFT. PATIENT HAS GOOD APPETITE. PATIENT HAS NOT YET VOIDED SINCE HUTTON CATHETER REMOVED. BLADDER SCAN SHOWED 113 ML IN BLADDER. IV SALINE LOCKED. PATIENT WILL BE TRANSFERRING TO MEDICAL FLOOR, ROOM 358 SHORTLY. REPORT HAS BEEN GIVEN TO ASSUMING NURSE, DAYSI CHOI.
--- NOTE | 2019-04-10 15:31 | NUR ---
PATIENT VOIDED 250 CC OF URINE INTO BED GAMBOA. RECEIVING NURSE INFORMED.
--- NOTE | 2019-04-10 15:50 | NUR ---
PATIENT TAKEN TO MEDICAL FLOOR BY ASSISTANT FOOTBALL COACH.
--- NOTE | 2019-04-10 16:22 | NUR ---
ICU 12 TRANSFER TO RM 358, RECIEVED REPORT. PT ARRIVE TO RM APPROX 1600. SHE IS A/O X4, PLEASANT AFFECT. STATE COMFORT @ THIS TIME. STATE NO SOB @ REST @ THIS TIME. BIOX 88-89% 8L HIFLO CANULA. LUNGS COARSE WITH CRACKLES. ENCOURAGED REST @ THIS TIME. SHE STATE MOUTH BREATHER, PLACE CANULA IN MOUTH @ THIS TIME. IV R AC PATENT/SL, PLACED NEW DRSG. WILL MX BREATHING STATUS. BP 91/62.
[2019-04-10 23:39] LABS: Stool Occult Bld Immuno 1 Negative (NEGATIVE)
[2019-04-11 04:49] LABS: BASOPHILS ABSOLUTE AUTO 0.09 K/mm3 (0.00-0.23); BASOPHILS PERCENT AUTO 0 % (0-2); EOSINOPHILS ABSOLUTE AUTO 0.58 K/mm3 (0.00-0.68); EOSINOPHILS PERCENT AUTO 3 % (0-6); Hematocrit 31.9 % (33.0-51.0); Hemoglobin 9.9 g/dL (11.5-16.0); IMMATURE GRAN ABSOLUTE AUTO 0.88 K/mm3 (0.00-0.10); IMMATURE GRAN PERCENT AUTO 4 % (0-1); LYMPHOCYTES ABSOLUTE AUTO 1.23 K/mm3 (0.84-5.20); LYMPHOCYTES PERCENT AUTO 6 % (21-46); MONOCYTES ABSOLUTE AUTO 1.28 K/mm3 (0.16-1.47); MONOCYTES PERCENT AUTO 6 % (4-13); Mean Corpuscular HGB 26.9 pg (26.0-34.0); Mean Corpuscular Volume 87 fL (80-100); Mean Platelet Volume 9.9 fL (9.1-12.4); NEUTROPHILS ABSOLUTE AUTO 17.24 K/mm3 (1.96-9.15); NEUTROPHILS PERCENT AUTO 81 % (41-73); Platelet Count 284 K/mm3 (150-400); RDW Coefficient Variation 16.8 % (11.7-14.2); RDW Standard Deviation 53.4 fL (35.1-46.3); Red Blood Cell Count 3.68 M/mm3 (3.80-5.20)
[2019-04-11 05:21] LABS: Bun/Creatinine Ratio 38.5 (12.0-20.0); Calcium, Blood 9.3 mg/dL (8.5-10.1); Creatinine, Blood 1.95 mg/dL (0.40-1.00); Potassium, Blood 4.5 mmol/L (3.5-5.5)
--- NOTE | 2019-04-11 06:06 | NUR ---
SENIOR ADVISORY SUMMARY NO ACUTE CHANGES. PT AAOX4 AND PLEASANT. 2 ASSIST TO BSC. PT REMAINS ON 8L O2 VIA HF NC. PT HAD LARGE FORMED BM. SAMPLE SENT, GUAIAC NEGATIVE. VSS, WILL CONTINUE TO MONITOR.
--- NOTE | 2019-04-11 16:55 | NUR ---
SUMMARY PT IS A/O X4, PLEASANT/COOPERATIVE AFFECT. SHE CONTINUES WEAK/FATIGUED. SHE STATE NO SOB @ REST. STATE NO C/P. SHE HAS C/O ARTHRITIC JOINT PAIN TODAY, TYLENOL GIVEN FOR RELIEF. LUNG DECREASED, COARSE BASES. O2 CONTINUES @ 8L HIFLO SHAMIKA, RT PROVIDING NEB TX'S & O2 TITRATION, STATE CONTINUE @ 8L FOR NOW, BIOX 90-93% DR BANKS IN TO SEE PT & DAUGHTERS, ADDRESS CONCERNS/QUESTIONS. VSS. PLAN FOR PT TO TRANSFER TO SNF WHEN APPROP.
[2019-04-12 04:52] LABS: BASOPHILS ABSOLUTE AUTO 0.09 K/mm3 (0.00-0.23); BASOPHILS PERCENT AUTO 1 % (0-2); EOSINOPHILS ABSOLUTE AUTO 0.62 K/mm3 (0.00-0.68); EOSINOPHILS PERCENT AUTO 4 % (0-6); Hematocrit 32.3 % (33.0-51.0); Hemoglobin 9.8 g/dL (11.5-16.0); IMMATURE GRAN ABSOLUTE AUTO 0.55 K/mm3 (0.00-0.10); IMMATURE GRAN PERCENT AUTO 3 % (0-1); LYMPHOCYTES ABSOLUTE AUTO 1.34 K/mm3 (0.84-5.20); LYMPHOCYTES PERCENT AUTO 8 % (21-46); MONOCYTES PERCENT AUTO 7 % (4-13); Mean Corpuscular HGB 26.3 pg (26.0-34.0); Mean Corpuscular HGB Conc 30.3 g/dL (31.5-36.5); Mean Corpuscular Volume 87 fL (80-100); Mean Platelet Volume 9.7 fL (9.1-12.4); NEUTROPHILS ABSOLUTE AUTO 13.98 K/mm3 (1.96-9.15); NEUTROPHILS PERCENT AUTO 79 % (41-73); Platelet Count 316 K/mm3 (150-400); RDW Coefficient Variation 17.2 % (11.7-14.2); RDW Standard Deviation 54.4 fL (35.1-46.3); Red Blood Cell Count 3.73 M/mm3 (3.80-5.20); White Blood Cell Count 17.78 K/mm3 (4.00-11.30)
[2019-04-12 05:10] LABS: Bun/Creatinine Ratio 35.4 (12.0-20.0); Calcium, Blood 9.2 mg/dL (8.5-10.1); Creatinine, Blood 2.46 mg/dL (0.40-1.00); Potassium, Blood 4.6 mmol/L (3.5-5.5)
--- NOTE | 2019-04-12 05:57 | NUR ---
SHIFT SUMMARY PT SLEPT WELL DURING THE NIGHT. OXYGEN ON AT 8L HIGH FLOW. UP WITH ASSIST OF 2 TO BSC. PT DYSPNEIC WITH INCREASED ACTIVITY. NO ACUTE CHANGES NOTED DURING THE NIGHT, WILL CONTINUE TO MONITOR.
--- NOTE | 2019-04-12 18:47 | NUR ---
shift summary patient pleasant. jerry maza consult called to the answering service for the patient. patient is a 2 person assist or 1 person assist depending on patients level of lethargy. she got up into the chair for meals today.
[2019-04-13 04:59] LABS: BASOPHILS ABSOLUTE AUTO 0.09 K/mm3 (0.00-0.23); BASOPHILS PERCENT AUTO 1 % (0-2); EOSINOPHILS ABSOLUTE AUTO 0.68 K/mm3 (0.00-0.68); EOSINOPHILS PERCENT AUTO 4 % (0-6); Hematocrit 33.5 % (33.0-51.0); Hemoglobin 10.2 g/dL (11.5-16.0); IMMATURE GRAN ABSOLUTE AUTO 0.42 K/mm3 (0.00-0.10); IMMATURE GRAN PERCENT AUTO 2 % (0-1); LYMPHOCYTES ABSOLUTE AUTO 1.27 K/mm3 (0.84-5.20); LYMPHOCYTES PERCENT AUTO 7 % (21-46); MONOCYTES ABSOLUTE AUTO 1.23 K/mm3 (0.16-1.47); MONOCYTES PERCENT AUTO 7 % (4-13); Mean Corpuscular HGB 27.1 pg (26.0-34.0); Mean Corpuscular HGB Conc 30.4 g/dL (31.5-36.5); Mean Corpuscular Volume 89 fL (80-100); Mean Platelet Volume 9.6 fL (9.1-12.4); NEUTROPHILS ABSOLUTE AUTO 15.32 K/mm3 (1.96-9.15); NEUTROPHILS PERCENT AUTO 81 % (41-73); Platelet Count 367 K/mm3 (150-400); RDW Coefficient Variation 17.1 % (11.7-14.2); RDW Standard Deviation 55.4 fL (35.1-46.3); Red Blood Cell Count 3.77 M/mm3 (3.80-5.20); White Blood Cell Count 19.01 K/mm3 (4.00-11.30)
[2019-04-13 05:23] LABS: Albumin, Blood 2.4 g/dL (3.4-5.0); Anion Gap 9 mmol/L (6-16); Blood Urea Nitrogen 100 mg/dL (8-24); Bun/Creatinine Ratio 35.8 (12.0-20.0); CO2, Blood 27 mmol/L (21-32); Calcium, Blood 9.4 mg/dL (8.5-10.1); Chloride, Blood 99 mmol/L (98-108); Creatinine, Blood 2.79 mg/dL (0.40-1.00); Glomerular Filtration Rate 17 (60-); Glucose, Blood 126 mg/dL (70-99); Phosphorus, Blood 4.6 mg/dL (2.5-4.9); Potassium, Blood 4.8 mmol/L (3.5-5.5); Sodium, Blood 135 mmol/L (136-145)
--- NOTE | 2019-04-13 05:52 | NUR ---
PT. ASLEEP T/O THE NIGHT. NO ACUTE CHANGES OVERNIGHT. PT. CONTINUES ON 8L OF HIGH FLOW O2 UNABLE TO TITRATE PT. O2 SATS REMAIN BETWEEN 90-93% PT. HAS DYSPNEA ON EXERTION. DENIES PAIN OR DISCOMFORT, BUT STILL WEAK. CALL LIGHT WITHIN REACH AND SIDE RAILS UP X2. WILL CONT TO MONITOR.
--- NOTE | 2019-04-13 18:33 | NUR ---
gemma summary patient is pleasant, doing better than I have seen since i have started with her. she has been pleasant and did a lot of sleeping today. no other concerns from the patient or family.
[2019-04-14 05:22] LABS: BASOPHILS ABSOLUTE AUTO 0.06 K/mm3 (0.00-0.23); BASOPHILS PERCENT AUTO 0 % (0-2); EOSINOPHILS PERCENT AUTO 4 % (0-6); Hematocrit 30.4 % (33.0-51.0); Hemoglobin 9.3 g/dL (11.5-16.0); IMMATURE GRAN ABSOLUTE AUTO 0.23 K/mm3 (0.00-0.10); IMMATURE GRAN PERCENT AUTO 1 % (0-1); LYMPHOCYTES ABSOLUTE AUTO 1.09 K/mm3 (0.84-5.20); LYMPHOCYTES PERCENT AUTO 7 % (21-46); MONOCYTES ABSOLUTE AUTO 1.53 K/mm3 (0.16-1.47); MONOCYTES PERCENT AUTO 10 % (4-13); Mean Corpuscular HGB 26.6 pg (26.0-34.0); Mean Corpuscular HGB Conc 30.6 g/dL (31.5-36.5); Mean Corpuscular Volume 87 fL (80-100); Mean Platelet Volume 9.8 fL (9.1-12.4); NEUTROPHILS ABSOLUTE AUTO 12.37 K/mm3 (1.96-9.15); NEUTROPHILS PERCENT AUTO 77 % (41-73); Platelet Count 357 K/mm3 (150-400); RDW Coefficient Variation 17.2 % (11.7-14.2); RDW Standard Deviation 54.5 fL (35.1-46.3); Red Blood Cell Count 3.49 M/mm3 (3.80-5.20); White Blood Cell Count 15.98 K/mm3 (4.00-11.30)
[2019-04-14 06:01] LABS: Bilirubin, Urine Neg (Neg); Blood, Urine 1+ (Neg); Glucose Qualitative, Urine Neg (Neg); Ketones, Urine Neg (Neg); Leukocyte Esterase, Urine 1+ (Neg); Nitrite, Urine Neg (Neg); Protein, Urine Neg (Neg); Specific Gravity, Urine 1.015 (1.003-1.022); Urobilinogen, Urine NORM (Normal)
[2019-04-14 06:02] LABS: Albumin, Blood 2.1 g/dL (3.4-5.0); Anion Gap 8 mmol/L (6-16); Blood Urea Nitrogen 102 mg/dL (8-24); Bun/Creatinine Ratio 38.6 (12.0-20.0); CO2, Blood 28 mmol/L (21-32); CPK Creatine Kinase 14 U/L (26-193); Calcium, Blood 9.1 mg/dL (8.5-10.1); Chloride, Blood 99 mmol/L (98-108); Creatinine, Blood 2.64 mg/dL (0.40-1.00); Glomerular Filtration Rate 18 (60-); Glucose, Blood 114 mg/dL (70-99); Phosphorus, Blood 4.3 mg/dL (2.5-4.9); Potassium, Blood 4.7 mmol/L (3.5-5.5); Sodium, Blood 135 mmol/L (136-145)
[2019-04-14 06:07] LABS: Appearance, Urine Clear (Clear); Color, Urine Yellow (P-Yellow)
[2019-04-14 06:09] LABS: Bacteria Rare /hpf; Squamous Epithelial Cells Few /hpf (Few)
[2019-04-14 06:14] LABS: Transitional Epithelial Cells Few /hpf (0-Rare)
--- NOTE | 2019-04-14 07:18 | NUR ---
SHIFT SUMMARY: PATIENT WAS PLEANSANT AND COOPERATIVE ALL SHIFT. SHE ONLY GOT UP A COUPLE TIMES WITH 1 PERSON ASSIST TO USE THE BEDSIDE COMMODE. ALL MEDS WERE ADMINISTERED WITH NO PROBLEMS. SHE DID HAVE AN EPISODE OF GENERALIZED PAIN THAT RESOLVED AFTER SOME TYELNOL. SHE SLEPT WELL AFTER THAT. DID NOT COMPLAIN OF ANY ACUTE CHANGES OR CONCERN. REMAINED UNCHANGED. WILL REPORT TO DAY SHIFT RN.
--- NOTE | 2019-04-14 18:11 | NUR ---
SHIFT SUMMARY PATIENT PLEASANT. NO ACUTE CONCERNS PER PATIENT. HER CHEST XRAY CAME BACK WITH WORSENED PNEUMONIA WHICH WAS POSSIBLY RELATED TO ASPIRATION. PATIENT HAS A SPEECH THERAPY EVAL UNKNOWN WHEN IT WILL BE DONE. HOPING FOR TOMORROW AM.
[2019-04-15 05:09] LABS: BASOPHILS ABSOLUTE AUTO 0.08 K/mm3 (0.00-0.23); BASOPHILS PERCENT AUTO 1 % (0-2); EOSINOPHILS ABSOLUTE AUTO 0.46 K/mm3 (0.00-0.68); EOSINOPHILS PERCENT AUTO 3 % (0-6); Hemoglobin 9.3 g/dL (11.5-16.0); IMMATURE GRAN ABSOLUTE AUTO 0.18 K/mm3 (0.00-0.10); IMMATURE GRAN PERCENT AUTO 1 % (0-1); LYMPHOCYTES ABSOLUTE AUTO 0.86 K/mm3 (0.84-5.20); LYMPHOCYTES PERCENT AUTO 6 % (21-46); MONOCYTES ABSOLUTE AUTO 1.27 K/mm3 (0.16-1.47); MONOCYTES PERCENT AUTO 9 % (4-13); Mean Corpuscular HGB 26.2 pg (26.0-34.0); Mean Corpuscular Volume 87 fL (80-100); Mean Platelet Volume 9.6 fL (9.1-12.4); NEUTROPHILS ABSOLUTE AUTO 11.64 K/mm3 (1.96-9.15); NEUTROPHILS PERCENT AUTO 80 % (41-73); Platelet Count 360 K/mm3 (150-400); RDW Coefficient Variation 16.9 % (11.7-14.2); RDW Standard Deviation 54.5 fL (35.1-46.3); Red Blood Cell Count 3.55 M/mm3 (3.80-5.20); White Blood Cell Count 14.49 K/mm3 (4.00-11.30)
[2019-04-15 05:34] LABS: Albumin, Blood 2.2 g/dL (3.4-5.0); Anion Gap 9 mmol/L (6-16); Blood Urea Nitrogen 103 mg/dL (8-24); Bun/Creatinine Ratio 48.1 (12.0-20.0); CO2, Blood 27 mmol/L (21-32); Calcium, Blood 9.5 mg/dL (8.5-10.1); Chloride, Blood 103 mmol/L (98-108); Creatinine, Blood 2.14 mg/dL (0.40-1.00); Glomerular Filtration Rate 23 (60-); Glucose, Blood 114 mg/dL (70-99); Phosphorus, Blood 4.3 mg/dL (2.5-4.9); Potassium, Blood 4.5 mmol/L (3.5-5.5); Sodium, Blood 139 mmol/L (136-145)
--- NOTE | 2019-04-15 06:43 | NUR ---
SHIFT SUMMARY: ARIANNA HAS BEEN VERY PLEASANT AND COOPERATIVE ALL NIGHT. SHE HAS BEEN UP AND DOWN TO THE COMMODE ALL NIGHT. THIS HAS CAUSED HER TO BE VERY TIRED AND EXHAUSTED THIS MORNING. HER COUGH HAS BECOME PRODUCTIVE AND SHE HAS YELLOWISH SPUTUM. LUNG SOUNDS ARE COURSE CRACKLES THROUGHOUT WITH SOME SOB WHEN EXERTION. SHE IS A 1 PERSON ASSIST TO THE COMMODE, WITH USE OF HER ORTHO SHOE. SHE HAS HAD 1 EVEN OF PAIN RIGHT AT BEDTIME, MED WAS GIVEN WHICH RESOLVED. HER VITALS HAVE BEEN STABLE UP TILL THIS MORNING WHERE HER BLOOD PRESSURE DROPPED TO THE 80'S THIS WAS DUE TO SEVERE EXHAUSTION. ONCE SHE WOKE UP AND REPOSITIONED HER THE BLOOD PRESSURE CAME UP TO HER NORMAL IN THE 90'S. SHE STATES SHE JUST NEEDS TO SLEEP. WILL REPORT TO DAY SHIFT RN.
--- NOTE | 2019-04-15 18:26 | NUR ---
SHIFT SUMMARY PT HAS BEEN VERY SLEEPY THIS SHIFT. PT WORKED WITH PHYSICAL AND OCCUPATIONAL THEARPY THIS SHIFT AND SAT IN CHAIR FOR ALL MEALS. NO COMPLAINTS THIS SHIFT. NO ACUTE CHANGES THIS SHIFT. CALL LIGHT IN REACH. WILL CONTINUE TO MONITOR AND REPORT TO ONCOMING RN.
--- NOTE | 2019-04-16 04:09 | NUR ---
SHIFT SUMMARY: PT IS ALERT AND ORIENTED. PT IS CALM AND COOPERATIVE WITH CARE. PT CALLS APPROPRIATELY. PT IS A 2 PERSON ASSIST FOR TRANSFERS WITH GAIT BELT. PT HAD ONE INCONTINENT VOID OVERNIGHT, BEDDING CHANGED. PT REPORTS SOB UPON EXERTION, O2 6 L VIA HF NC KEEPING SATS > 90%. PT DENIES PAIN, NAUSEA, AND VOMITING. PT SLEPT MUCH OF THE NIGHT WHEN NOT DISTURBED. NO ACUTE CHANGES OR COMPLICATIONS THIS SHIFT. WILL CONTINUE TO MONITOR.
[2019-04-16 07:45] LABS: Albumin, Blood 2.2 g/dL (3.4-5.0); Anion Gap 5 mmol/L (6-16); Blood Urea Nitrogen 82 mg/dL (8-24); Bun/Creatinine Ratio 46.1 (12.0-20.0); CO2, Blood 29 mmol/L (21-32); Calcium, Blood 9.6 mg/dL (8.5-10.1); Chloride, Blood 109 mmol/L (98-108); Creatinine, Blood 1.78 mg/dL (0.40-1.00); Glomerular Filtration Rate 29 (60-); Glucose, Blood 102 mg/dL (70-99); Phosphorus, Blood 3.4 mg/dL (2.5-4.9); Potassium, Blood 4.4 mmol/L (3.5-5.5); Sodium, Blood 143 mmol/L (136-145)
[2019-04-16 16:06] LABS: A/G RATIO 0.9 (0.7-1.7); ALBUMIN 2.3 g/dL (2.9-4.4); ALPHA-1-GLOBULIN 0.4 g/dL (0.0-0.4); ALPHA-2-GLOBULIN 0.9 g/dL (0.4-1.0); BETA GLOBULIN 0.7 g/dL (0.7-1.3); GAMMA GLOBULIN 0.6 g/dL (0.4-1.8); GLOBULIN, TOTAL 2.6 g/dL (2.2-3.9); IMMUNOGLOBULIN A, QN, SERUM 144 mg/dL (64-422); IMMUNOGLOBULIN G, QN, SERUM 613 mg/dL (700-1600); IMMUNOGLOBULIN M, QN, SERUM 33 mg/dL (26-217); M-SPIKE Not Observed g/dL (Not Observed); PROTEIN, TOTAL, SERUM 4.9 g/dL (6.0-8.5)
--- NOTE | 2019-04-16 17:45 | NUR ---
SHIFT SUMMARY PT WORKED WITH PT/OT THIS SHIFT. PT HAS BEEN UP IN CHAIR FOR ALL MEALS. OXYGEN LEVEL DOWN FROM 6L HIGH FLOW NC TO 3.5L VIA NC. PT'S OXYGEN SATURATION 93% WHEN THIS RN CHECKED O2 SATS. NO COMPLAINTS OF PAIN THIS SHIFT. PT CONTINUES TO NOT HAVE MUCH OF AN APPETITE. PT IS MORE AWAKE TODAY. NO ACUTE CHANGES. CALL LIGHT IN REACH. WILL CONTINUE TO MONITOR AND REPORT TO ONCOMING RN.
--- NOTE | 2019-04-17 06:10 | NUR ---
SHIFT SUMMARY PT SLEPT WELL DURING THE NIGHT, UP TO COMMODE X2 WITH ASSIST OF 1-2. PT ALERT AND ORIENTED. NO ACUTE EVENTS NOTED. OXYGEN REMAINS ON PER NC AT 3.5L, WILL CONTINUE TO MONITOR.
--- NOTE | 2019-04-17 07:30 | NUR ---
PT PLEASANT COOP A/O TALKATIVE. STATES FEELS SOME IMPROVEMENT. SOME PAIN GENERALIZED. MED PER EMAR. H/R REG, NO MURMER NOTED. NO TELE. LUNGS CLEAR UPPER. CRACKLES MID AND BASES. ON 3.5 L O2. RESP EASY, UNLABORED. TALKING 4-6 WORD SENTENCES. BT X4 LAST BM YEST, FIRM. VOIDS PER BSC, 1 ASST. BED IN LOW POSITION, CALL LITE IN REACH, CALLS APPROP
[2019-04-17 08:54] LABS: Albumin, Blood 2.3 g/dL (3.4-5.0); Anion Gap 4 mmol/L (6-16); Blood Urea Nitrogen 69 mg/dL (8-24); Bun/Creatinine Ratio 44.8 (12.0-20.0); CO2, Blood 30 mmol/L (21-32); Calcium, Blood 9.9 mg/dL (8.5-10.1); Chloride, Blood 113 mmol/L (98-108); Creatinine, Blood 1.54 mg/dL (0.40-1.00); Glomerular Filtration Rate 34 (60-); Glucose, Blood 123 mg/dL (70-99); Phosphorus, Blood 2.9 mg/dL (2.5-4.9); Potassium, Blood 4.6 mmol/L (3.5-5.5); Sodium, Blood 147 mmol/L (136-145)
[2019-04-17] MEDS ORDERED: ASCO500 PO (13:02)
[2019-04-17] MEDS ORDERED: ATOR40TA PO (13:03)
[2019-04-17] MEDS ORDERED: Dairy Relie9000 UNI1 PO (13:04)
[2019-04-17] MEDS ORDERED: DOCU100 PO (13:04)
[2019-04-17] MEDS ORDERED: Ferrous Sulfat324 MG PO (13:07)
[2019-04-17] MEDS ORDERED: ALBU3IS INH (13:10)
[2019-04-17] MEDS ORDERED: LEVOFLOXACIN250 MG PO (13:11)
[2019-04-17] MEDS ORDERED: MIRALAX17 GM PO (13:12)
[2019-04-17] MEDS ORDERED: METO25ER PO (13:12)
[2019-04-17] MEDS ORDERED: VISBIOME 112.51 EACH PO (13:13)
[2019-04-17] MEDS ORDERED: METR500 PO (13:13)
--- NOTE | 2019-04-17 14:18 | NUR ---
DISCHARGE TO [facility]. RIC. IV PULLED BY [place] BENNETT. NO TELE. DRESSED PT. OUT WITH TRANSPORT AT 1418.
--- NOTE | 2019-04-17 14:27 | NUR ---
CALLED PHILIP BARTHOLOMEW, REPORT GIVEN. AT [facility]..
--- NOTE | 2019-04-17 17:56 | NUR ---
RECEIVED CALL FROM PHILIP BIGGS. PT NOT HERE. TOLD HER [facility] TRANSPORTED ABOUT 2PM. [facility] CALLED AT SAME TIME. HAVE PT, NO REPORT. TWO MANAGERS TO TALK AND DECIDE WHO GETS PT. ([employer]). TANK SHOP SUPERVISOR LENORE PAUL ADVISED.
== END 2019-04-17 14:40 | DRG 871 ==
LOC: ER 11:52 → ICUW 14:15 → MEDS 14:15 → ICUW 15:23 → MEDS 04-10 15:45 → ENPENDDIS 04-17 09:22 → MEDS 04-17 14:40
PROVIDERS: Emergency Medicine; Internal Medicine; ADMIT Internal Medicine
PROC: 30233N1 Transfusion of Nonautologous Red Blood Cells into Peripheral Vein, Percutaneous Approach (ICD-10-PCS; principal; 2019-04-12)
DX: A41.9 Sepsis, unspecified organism (principal); J18.9 Pneumonia, unspecified organism; J96.01 Acute respiratory failure with hypoxia; I21.A1 Myocardial infarction type 2; I50.43 Acute on chronic combined systolic (congestive) and diastolic (congestive) heart failure; N18.4 Chronic kidney disease, stage 4 (severe); I13.0 Hypertensive heart and chronic kidney disease with heart failure and stage 1 through stage 4 chronic kidney disease, or unspecified chronic kidney disease; R65.20 Severe sepsis without septic shock; D50.0 Iron deficiency anemia secondary to blood loss (chronic); E03.9 Hypothyroidism, unspecified; K21.9 Gastro-esophageal reflux disease without esophagitis; K44.9 Diaphragmatic hernia without obstruction or gangrene; D50.9 Iron deficiency anemia, unspecified; G62.9 Polyneuropathy, unspecified; I25.5 Ischemic cardiomyopathy
CPT/HCPCS: 36415; 36430; 36600; 51702; 71046; 76770; 80048; 80053; 80069; 81001; 82274; 82550; 82553; 82728; 82784; 82803; 83540; 83550; 83605; 83735; 83880; 84165; 84443; 84484; 85014; 85018; 85025; 85610; 86334; 86850; 86900; 86901; 86923; 87040; 87070; 87205; 87486; 87581; 87633; 87798; 92610; 93005; 93010; 93306; 94640; 94760; 94761; 96374; 96375; 97110; 97162; 97166; 97530; 97535; 99285-25; A9270; J0696; J1650; J1940; J1956; J3430; J7050; P9016

== ENCOUNTER 2019-05-20 11:03 | Inpatient (IN) | payer MEDICARE, OTHER ==
[~2019-05-20] VITALS: Ht 162.6 cm; Wt 63.9 kg
[~2019-05-20 11:03] MED LIST changes: +ALBU3IS INH; +ASCO500 PO; +ATOR40TA PO; +DOCU100 PO; +Dairy Relie9000 UNI1 PO; +Ferrous Sulfat324 MG PO; +GABA300 PO; +LEVOFLOXACIN250 MG PO; +METO25ER PO; +METR500 PO; +MIRALAX17 GM PO; +VISBIOME 112.51 EACH PO
[2019-05-20 11:35] LABS: BASOPHILS ABSOLUTE AUTO 0.06 K/mm3 (0.00-0.23); BASOPHILS PERCENT AUTO 0 % (0-2); EOSINOPHILS ABSOLUTE AUTO 0.01 K/mm3 (0.00-0.68); EOSINOPHILS PERCENT AUTO 0 % (0-6); Hematocrit 37.2 % (33.0-51.0); Hemoglobin 11.4 g/dL (11.5-16.0); IMMATURE GRAN ABSOLUTE AUTO 0.19 K/mm3 (0.00-0.10); IMMATURE GRAN PERCENT AUTO 1 % (0-1); LYMPHOCYTES ABSOLUTE AUTO 0.93 K/mm3 (0.84-5.20); LYMPHOCYTES PERCENT AUTO 4 % (21-46); MONOCYTES ABSOLUTE AUTO 2.13 K/mm3 (0.16-1.47); MONOCYTES PERCENT AUTO 9 % (4-13); Mean Corpuscular HGB 27.6 pg (26.0-34.0); Mean Corpuscular HGB Conc 30.6 g/dL (31.5-36.5); Mean Platelet Volume 9.1 fL (9.1-12.4); NEUTROPHILS ABSOLUTE AUTO 19.63 K/mm3 (1.96-9.15); NEUTROPHILS PERCENT AUTO 86 % (41-73); Platelet Count 271 K/mm3 (150-400); RDW Coefficient Variation 18.6 % (11.7-14.2); RDW Standard Deviation 61.6 fL (35.1-46.3); Red Blood Cell Count 4.13 M/mm3 (3.80-5.20); White Blood Cell Count 22.95 K/mm3 (4.00-11.30)
[2019-05-20 11:36] LABS: Mean Corpuscular Volume 90 fL (80-100)
[2019-05-20 11:53] LABS: Bun/Creatinine Ratio 18.1 (12.0-20.0); Calcium, Blood 9.8 mg/dL (8.5-10.1); Creatinine, Blood 1.05 mg/dL (0.40-1.00); Potassium, Blood 4.3 mmol/L (3.5-5.5)
[2019-05-20] MEDS ORDERED: ACET325 PO (14:57)
[2019-05-20] MEDS ORDERED: ATOR40TA PO (14:59)
[2019-05-20] MEDS ORDERED: Pexeva40 MG PO (15:00)
[2019-05-20] MEDS ORDERED: POTA10T PO (15:01)
--- NOTE | 2019-05-20 19:44 | NUR ---
SHIFT SUMMARY: PATIENT ADMIT FROM ED THIS SHIFT. PT A&O; SLEEPY; CALM AND COOPERATIVE WITH CARE. MEDICATED FOR R NECK PAIN PER EMAR. CRITICAL HIGH LACTIC @ 3.6; DR AWARE; NS @ 150 X1L INFUSING; IV ABX CONTINUING. REPORT GIVEN TO ONCOMING RN.
[2019-05-20] MEDS ORDERED: PARO20 PO (23:18)
[2019-05-21 04:41] LABS: BASOPHILS ABSOLUTE AUTO 0.07 K/mm3 (0.00-0.23); BASOPHILS PERCENT AUTO 0 % (0-2); EOSINOPHILS ABSOLUTE AUTO 0.03 K/mm3 (0.00-0.68); EOSINOPHILS PERCENT AUTO 0 % (0-6); Hemoglobin 8.8 g/dL (11.5-16.0); IMMATURE GRAN ABSOLUTE AUTO 0.12 K/mm3 (0.00-0.10); IMMATURE GRAN PERCENT AUTO 1 % (0-1); LYMPHOCYTES ABSOLUTE AUTO 1.14 K/mm3 (0.84-5.20); LYMPHOCYTES PERCENT AUTO 6 % (21-46); MONOCYTES ABSOLUTE AUTO 1.67 K/mm3 (0.16-1.47); MONOCYTES PERCENT AUTO 9 % (4-13); Mean Corpuscular HGB 27.5 pg (26.0-34.0); Mean Corpuscular HGB Conc 30.3 g/dL (31.5-36.5); Mean Corpuscular Volume 91 fL (80-100); Mean Platelet Volume 9.2 fL (9.1-12.4); NEUTROPHILS ABSOLUTE AUTO 15.63 K/mm3 (1.96-9.15); NEUTROPHILS PERCENT AUTO 84 % (41-73); Platelet Count 219 K/mm3 (150-400); RDW Coefficient Variation 18.9 % (11.7-14.2); White Blood Cell Count 18.66 K/mm3 (4.00-11.30)
[2019-05-21 05:00] LABS: Bun/Creatinine Ratio 17.9 (12.0-20.0); Calcium, Blood 8.8 mg/dL (8.5-10.1); Creatinine, Blood 1.12 mg/dL (0.40-1.00); Potassium, Blood 4.5 mmol/L (3.5-5.5)
--- NOTE | 2019-05-21 06:44 | NUR ---
05/21/19 0635 AWAKENED FOR AM MEDS. STATES SHE SLEPT WELL LAST NIGHT. RT SIDE OF NECK STILL SWOLLEN,PINK AND TENDER. WILL MEDICATE WITH TYLENOL. VITALS STABLE. REPOSITIONED Q 2 HOURS BY EYEGLASS CUTTER AND/MANAGER BILINGUAL.
--- NOTE | 2019-05-21 09:16 | NUR ---
PT IS A/OX3, PLEASNT AND COOPERATIVE, THE PT WAS ASSISTED UP TO THE BSC, AND THEN TO THE CHAIR FOR BREAKFAST, APPEARS TO BE BREATHING EASILY ON O2 @ 2L/MIN AT THIS TIME
--- NOTE | 2019-05-21 11:21 | NUR ---
Patient is sitting on a chair and alert with daughter Aleisha, bedside. Patient shares about her recent medical issues but also goes down a long list of other medical issues she has (with her Aleisha's health). Patient voices her frustration stating, "I am a magnet for medical problems." I listen empathically, explore patient's buddhism beliefs, provide spiritual guidance and prayer. Patient and Aleisha express appreciation for both the visit and the prayer and thank me for coming by.
--- NOTE | 2019-05-21 16:50 | NUR ---
PT IS A/OX3,PLEASANT AND COOPERATIVE, THE PT IS UP WITH ASSIST TO THE BSC OR CAIR, THE PT WAS UP IN THE CHAIR FOR A COULE HOURS AT BREAKFAST TIME, THE PT APPEARS TO BE BREATHING EASILY ON O2 AT 2L/MIN, THE PT WAS MEDICATED WITH TYLEONOL FOR RIGHT FACIAL PAIN X2, PT APPLIED HEAT AND COLD APPLICATIONS TO HER FACE, FAMILY AT THE BEDSIDE, CALL LIGHT IN REACH
[2019-05-22 04:57] LABS: BASOPHILS ABSOLUTE AUTO 0.05 K/mm3 (0.00-0.23); BASOPHILS PERCENT AUTO 0 % (0-2); EOSINOPHILS PERCENT AUTO 4 % (0-6); Hematocrit 29.1 % (33.0-51.0); Hemoglobin 8.8 g/dL (11.5-16.0); IMMATURE GRAN ABSOLUTE AUTO 0.12 K/mm3 (0.00-0.10); IMMATURE GRAN PERCENT AUTO 1 % (0-1); LYMPHOCYTES ABSOLUTE AUTO 0.91 K/mm3 (0.84-5.20); LYMPHOCYTES PERCENT AUTO 6 % (21-46); MONOCYTES ABSOLUTE AUTO 1.08 K/mm3 (0.16-1.47); MONOCYTES PERCENT AUTO 7 % (4-13); Mean Corpuscular HGB 27.8 pg (26.0-34.0); Mean Corpuscular HGB Conc 30.2 g/dL (31.5-36.5); Mean Corpuscular Volume 92 fL (80-100); Mean Platelet Volume 9.2 fL (9.1-12.4); NEUTROPHILS ABSOLUTE AUTO 12.43 K/mm3 (1.96-9.15); NEUTROPHILS PERCENT AUTO 82 % (41-73); Platelet Count 253 K/mm3 (150-400); RDW Coefficient Variation 18.6 % (11.7-14.2); RDW Standard Deviation 62.5 fL (35.1-46.3); Red Blood Cell Count 3.17 M/mm3 (3.80-5.20); White Blood Cell Count 15.19 K/mm3 (4.00-11.30)
[2019-05-22 05:13] LABS: Bun/Creatinine Ratio 17.9 (12.0-20.0); Calcium, Blood 8.5 mg/dL (8.5-10.1); Creatinine, Blood 1.06 mg/dL (0.40-1.00); Potassium, Blood 4.1 mmol/L (3.5-5.5)
--- NOTE | 2019-05-22 07:32 | NUR ---
05/22/19 0640 SWELLING TO RT SIDE OF NECK/FACE UNCHANGED FROM LAST EVENING. MEDICATED ONCE WITH RELIEF. DECLINED PAIN MED AT THIS TIEM. "IT'S OKAY RIGHT NOW." CALLS APPROPRIATELY TO GET UP TO BSC WITH ONE PERSON ASSIST AND WALKER. UNEVENFUL NIGHT.
--- NOTE | 2019-05-22 14:02 | NUR ---
TITRATED OFF O2 WARMED PTS HANDS PTS O2 HAD BEEN OFF OVER 30 MIN, PTS SATS AT 92-94% ON RA AT THIS TIME
[2019-05-22 16:28] LABS: Vancomycin, Trough 12.3 ug/mL (5.0-10.0)
--- NOTE | 2019-05-22 17:29 | NUR ---
PT IS A/OX3, PLEASANT AND COOPERATIVE, THE PT IS UP WITH ASSIST TO THE BSC AND TO THE CHAIR. THE PT TODAY WORKED WITH THE PHYSICAL AND OCCUPATIONAL THERAPIST, THE PT PT UP IN THE CHAIR FOR SEVERAL HOURS TODAY, LASIX WAS GIVEN THIS AM FOR BLE EDEMA, THE PT WAS MEDICATED WITH TYLENOL FOR PAIN X2 TODAY, DR. RICH OFFICE WAS CALLED FOR CONSULT. DR. CRESPO CALLED BACK TO DR. REYES WITH RECOMENDATIONS A RN NOTIFY ORDER WAS ENTERED WITH THE RECOMENDATIONS, LEMON GYLCERIN SWABS WERE GIVEN TO EXCITE THE PTS SALIVARY GLANDS, AND MASSAGE THERAPY TO THE PTS RIGHT JAW WAS STARTED, CALL LIGHT IN REACH WILL CONTINUE TO MONITOR AND ASSESS FOR CHANGES
--- NOTE | 2019-05-23 07:51 | NUR ---
PT SLEPT WELL THIS SHIFT AND HAD NO COMPLAINTS OF PAIN OR DISCOMFORT. SHIFT ASSESSMENTS WERE COMPLETED AND ROUNDING DONE Q2H. NO SIGNIFICANT CHANGES.
--- NOTE | 2019-05-23 19:58 | NUR ---
PT IS A/O X3 PLEASANT AND COOPERATIVE THE PT IS UP WITH MINIMAL ASSIST WITH THE FRONT WHEELED WALKER, THE PT WAS UP TO THE BATHROOM SEVERAL TIMES T/O THE DAY THE PT WAS UP IN THE CHAIR TODAY FOR SEVERAL HOURS, THE PT WAS ENCOURAGED TO MASSAGE THE AFEETED AREA ON HER RIGHT SIDE FACE, AND TO USE THE GLYCERIN SWABS TO EXCITE HER SALYVIA GLANDS, CALL LIGHT IN REACH, THE PT APPEARED TO BE BREATHING EASILY ON RA
[2019-05-24 07:29] LABS: BASOPHILS ABSOLUTE AUTO 0.09 K/mm3 (0.00-0.23); BASOPHILS PERCENT AUTO 1 % (0-2); EOSINOPHILS ABSOLUTE AUTO 0.79 K/mm3 (0.00-0.68); EOSINOPHILS PERCENT AUTO 8 % (0-6); Hematocrit 31.1 % (33.0-51.0); Hemoglobin 9.5 g/dL (11.5-16.0); IMMATURE GRAN ABSOLUTE AUTO 0.12 K/mm3 (0.00-0.10); IMMATURE GRAN PERCENT AUTO 1 % (0-1); LYMPHOCYTES ABSOLUTE AUTO 1.19 K/mm3 (0.84-5.20); LYMPHOCYTES PERCENT AUTO 12 % (21-46); MONOCYTES ABSOLUTE AUTO 1.09 K/mm3 (0.16-1.47); MONOCYTES PERCENT AUTO 11 % (4-13); Mean Corpuscular HGB 27.2 pg (26.0-34.0); Mean Corpuscular HGB Conc 30.5 g/dL (31.5-36.5); Mean Platelet Volume 9.3 fL (9.1-12.4); NEUTROPHILS ABSOLUTE AUTO 6.49 K/mm3 (1.96-9.15); NEUTROPHILS PERCENT AUTO 66 % (41-73); Platelet Count 322 K/mm3 (150-400); RDW Coefficient Variation 18.6 % (11.7-14.2); RDW Standard Deviation 61.3 fL (35.1-46.3); Red Blood Cell Count 3.49 M/mm3 (3.80-5.20); White Blood Cell Count 9.77 K/mm3 (4.00-11.30)
[2019-05-24 07:33] LABS: Mean Corpuscular Volume 89 fL (80-100)
[2019-05-24 07:44] LABS: Bun/Creatinine Ratio 10.7 (12.0-20.0); Calcium, Blood 8.7 mg/dL (8.5-10.1); Creatinine, Blood 1.22 mg/dL (0.40-1.00); Potassium, Blood 3.7 mmol/L (3.5-5.5)
[2019-05-24 17:16] LABS: Vancomycin, Trough 17.1 ug/mL (5.0-10.0)
--- NOTE | 2019-05-24 17:59 | NUR ---
SHIFT SUMMARY: PT IS A/O X 3-4 THIS SHIFT WITH NO C/O PAIN. SHE CONTINUES TO USE BEDSIDE COMMODE FOR TOILETING AND CALLS FREQUENTLY TO GO AND SHE IS CONT/INC. SPEECH THERAPY EVALED PT TODAY AND MADE NO CHANGES TO HER DIET. IV ABO INFUSED WITH NO ISSUES. PT CALLS FOR HELP WITH CALL LIGHT WHEN NEEDED.
--- NOTE | 2019-05-25 06:06 | NUR ---
SHIFT SUMMARY PT HAD NO ISSUES NOTED THIS SHIFT. PT WENT TO BED AFTER EVENING MEDS AND HAS SLEPT WELL. PT CURRENTLY SLEEPING WELL AND BREATHING EASY. CALL LIGHT IN REACH
[2019-05-25] MEDS ORDERED: Augmentin 875-1 EACH PO (11:41)
--- NOTE | 2019-05-25 12:18 | NUR ---
PT DISCHARGED PT DISCHARGED AT 1218. PT IN STABLE CONTITION WITH VSS. PT MEDICATED WITH TYLENOL PRIOR TO DC. PT WHEELED OUT BY AIDE & DRIVEN HOME BY DAUGHTER. DC INSTRUCTIONS WENT OVER WITH PT & DAUGHTER. BOTH DENIED FURTHER QUESTIONS. WILL CONTINUE TO MONITOR.
== END 2019-05-25 12:19 | disposition home health service (06) | DRG 872 ==
LOC: ER 11:03 → MEDS 14:57 → ENPENDDIS 05-25 10:30 → MEDS 05-25 12:19
PROVIDERS: Emergency Medicine; Internal Medicine; ADMIT Hospitalist
DX: A41.9 Sepsis, unspecified organism (principal); I42.9 Cardiomyopathy, unspecified; N17.9 Acute kidney failure, unspecified; L03.211 Cellulitis of face; E87.2 Acidosis; N18.4 Chronic kidney disease, stage 4 (severe); R65.20 Severe sepsis without septic shock; K11.20 Sialoadenitis, unspecified; J44.9 Chronic obstructive pulmonary disease, unspecified; I12.9 Hypertensive chronic kidney disease with stage 1 through stage 4 chronic kidney disease, or unspecified chronic kidney disease; I25.10 Atherosclerotic heart disease of native coronary artery without angina pectoris; K21.9 Gastro-esophageal reflux disease without esophagitis; Z86.718 Personal history of other venous thrombosis and embolism; Z79.01 Long term (current) use of anticoagulants; E78.5 Hyperlipidemia, unspecified; D63.1 Anemia in chronic kidney disease; R09.02 Hypoxemia; R13.10 Dysphagia, unspecified; Z87.891 Personal history of nicotine dependence
CPT/HCPCS: 36415; 70491; 71046; 80048; 80202; 82947; 83605; 85025; 87040; 92610; 94640; 94760; 94761; 96365-59; 96375-59; 97110; 97116; 97162; 97166; 97530; 97535; 99285-25; A9270; J1650; J1940; J2405; J2543; J3010; J3370; J7030; J7050; Q9967

== ENCOUNTER 2020-12-04 15:06 | Emergency (ER) | payer MEDICARE ==
[~2020-12-04] VITALS: Ht 147.3 cm; Wt 76.2 kg
[~2020-12-04 15:06] MED LIST changes: -ALBU90OI61 INH; +Augmentin 875-1 EACH PO; -CLOP75 PO; -FURO20 PO; -GABA300 PO; -LEVSOD75 PO; -METO25ER PO; +PARO20 PO; +Pexeva40 MG PO; -Ropinirole HCl1 MG PO
[2020-12-04] MEDS ORDERED: FEOSOL BIFERA 228 MG (16:48)
[2020-12-04] MEDS ORDERED: CEPH500 PO (17:32)
== END 2020-12-04 18:00 | disposition home or self-care (01) ==
LOC: ER 15:06
DX: L97.519 Non-pressure chronic ulcer of other part of right foot with unspecified severity (principal); L08.9 Local infection of the skin and subcutaneous tissue, unspecified; A52.16 Charcot's arthropathy (tabetic); I10 Essential (primary) hypertension; E03.9 Hypothyroidism, unspecified; Z79.01 Long term (current) use of anticoagulants; Z88.1 Allergy status to other antibiotic agents; Z88.8 Allergy status to other drugs, medicaments and biological substances; Z79.02 Long term (current) use of antithrombotics/antiplatelets; Z79.899 Other long term (current) drug therapy
CPT/HCPCS: 73620; 99283-25; A9270

== ENCOUNTER 2020-12-29 10:56 | Inpatient (IN) | payer MEDICARE ==
[~2020-12-29] VITALS: Ht 147.3 cm; Wt 55.5 kg
[~2020-12-29 10:56] MED LIST changes: +CEPH500 PO; +FEOSOL BIFERA 228 MG
[2020-12-29 11:45] LABS: BASOPHILS ABSOLUTE AUTO 0.05 K/mm3 (0.00-0.23); BASOPHILS PERCENT AUTO 0 % (0-2); EOSINOPHILS ABSOLUTE AUTO 0.18 K/mm3 (0.00-0.68); EOSINOPHILS PERCENT AUTO 1 % (0-6); Hematocrit 35.4 % (33.0-51.0); Hemoglobin 10.8 g/dL (11.5-16.0); IMMATURE GRAN ABSOLUTE AUTO 0.08 K/mm3 (0.00-0.10); IMMATURE GRAN PERCENT AUTO 1 % (0-1); LYMPHOCYTES ABSOLUTE AUTO 0.95 K/mm3 (0.84-5.20); LYMPHOCYTES PERCENT AUTO 7 % (21-46); MONOCYTES ABSOLUTE AUTO 1.37 K/mm3 (0.16-1.47); MONOCYTES PERCENT AUTO 10 % (4-13); Mean Corpuscular HGB 26.4 pg (26.0-34.0); Mean Corpuscular HGB Conc 30.5 g/dL (31.5-36.5); Mean Corpuscular Volume 87 fL (80-100); Mean Platelet Volume 9.5 fL (9.1-12.4); NEUTROPHILS ABSOLUTE AUTO 11.42 K/mm3 (1.96-9.15); NEUTROPHILS PERCENT AUTO 81 % (41-73); Platelet Count 269 K/mm3 (150-400); RDW Coefficient Variation 15.8 % (11.7-14.2); RDW Standard Deviation 50.4 fL (35.1-46.3); Red Blood Cell Count 4.09 M/mm3 (3.80-5.20); White Blood Cell Count 14.05 K/mm3 (4.00-11.30)
[2020-12-29 11:46] LABS: Base Excess Venous -2.2 mmol/L; Bicarbonate Venous 22.6 mmol/L (24.0-30.0); PCO2 Venous 43.7 mmHg (38-42); PO2 Venous 130 mmHg (38-42); pH Blood Venous 7.34 (7.34-7.37)
[2020-12-29 12:04] LABS: Albumin, Blood 3.5 g/dL (3.4-5.0); Albumin/Globulin Ratio 0.9 (0.8-1.8); Bilirubin, Total 0.3 mg/dL (0.1-1.0); Bun/Creatinine Ratio 28.2 (12.0-20.0); Creatinine, Blood 1.24 mg/dL (0.40-1.00); Globulin, Blood 4.1 g/dL (2.2-4.0); Potassium, Blood 4.4 mmol/L (3.5-5.5); Total Protein, Blood 7.6 g/dL (6.4-8.2)
[2020-12-29 12:22] LABS: Influenza A, PCR NEGATIVE (NEGATIVE); Influenza B, PCR NEGATIVE (NEGATIVE); Resp Syncytial Virus, PCR NEGATIVE (NEGATIVE); SARS-Cov-2 (COVID-19) PCR, MMC NEGATIVE (NEGATIVE)
[2020-12-29] MEDS ORDERED: CLOP75 PO (12:58)
[2020-12-29] MEDS ORDERED: LEVSOD75 PO (12:59)
[2020-12-29] MEDS ORDERED: ROPINIROLE HCL4 M1 PO (13:00)
[2020-12-29] MEDS ORDERED: Lisinopril-Hct1 EAC4 PO (13:00)
[2020-12-29] MEDS ORDERED: ZOLOFT100 M4 PO (13:01)
[2020-12-29] MEDS ORDERED: LOVASTATIN40 MG PO (13:02)
[2020-12-29] MEDS ORDERED: OMEP20ER PO (13:02)
[2020-12-29] MEDS ORDERED: ALBU90OI61 INH (13:03)
[2020-12-29] MEDS ORDERED: GABA300 PO (13:07)
[2020-12-29] MEDS ORDERED: METO25ER PO (13:08)
[2020-12-29] MEDS ORDERED: ACET500 PO (13:17)
[2020-12-29] MEDS ORDERED: Percocet 5-3251 EACH PO (13:20)
--- NOTE | 2020-12-29 18:58 | NUR ---
ARRIVES ABOUT 1714. ALERT. ORIENTED BUT FORGETFUL. DENIES ANY PAIN. LUNGS COARSE T/O. PICS TAKEN OF SULLY FEET. DAUGHTER HAS BEEN TAKING CARE OF WOUNDS. ADMITTED FOR POSS ASPIRATION PNE. ON 1 LPM. KARISHMA
[2020-12-30] MEDS ORDERED: POTA10T PO (03:02)
[2020-12-30] MEDS ORDERED: FURO20 PO (03:04)
[2020-12-30] MEDS ORDERED: DIPH50 PO (03:06)
[2020-12-30 04:57] LABS: Hematocrit 29.9 % (33.0-51.0); Hemoglobin 9.1 g/dL (11.5-16.0); Mean Corpuscular HGB 25.8 pg (26.0-34.0); Mean Corpuscular HGB Conc 30.4 g/dL (31.5-36.5); Mean Corpuscular Volume 85 fL (80-100); Mean Platelet Volume 9.4 fL (9.1-12.4); Platelet Count 235 K/mm3 (150-400); RDW Coefficient Variation 15.6 % (11.7-14.2); RDW Standard Deviation 48.4 fL (35.1-46.3); Red Blood Cell Count 3.53 M/mm3 (3.80-5.20); White Blood Cell Count 11.65 K/mm3 (4.00-11.30)
[2020-12-30 05:20] LABS: Calcium, Blood 9.4 mg/dL (8.5-10.1); Creatinine, Blood 1.37 mg/dL (0.40-1.00); Potassium, Blood 4.2 mmol/L (3.5-5.5)
--- NOTE | 2020-12-30 05:52 | NUR ---
SHIFT SUMMARY AOX3-UNAWARE DATE, FORGETFUL @TIMES. STATES SHE HAS A "POOR MEMORY". VSS. SPO2 >90% ON 1L, DOES NOT WEAR O2 @BASELINE. LUNGS HAVE COARSE EXP WHEEZES SCATTERED T/O, WORSE IN R LOBES. E/U RESPIRATIONS. DENIES SOB @REST. HAS OCCASIONAL PRODUCTIVE COUGH c SCANT AMOUNT YELLOW SPUTUM. MEDS TAKEN 1@ A TIME IN APPLESAUCE, EDUCATED ON CHIN TUCK SWALLOW TECHNIQUE. OLD SMALL WOUNDS/ULCES ON FEET, BANDAGES C/D/I. CALL LT IN REACH, WILL MONITOR UNTIL DAY NURSE ASSUMES CARE.
--- NOTE | 2020-12-30 18:15 | NUR ---
PATIENT A/OX TODAY, BUT CAN BE FORGETFUL. SPEECH THERAPY EVALUATED PATIENT TODAY AND MADE PATIENT NPO. ORAL MEDS D/C'D AND IV MEDICATIONS ORDERED. PATIENT NOW HAS AN ORDER TO PLACE TELEMETRY IN ORDER TO GIVE IV METOPROLOL. CLINIMIX RUNNING AT 60ML/HR. 20G IV TO R AC WNL. PATIENT HAS COGESTED NONPRODUCTIVE COUGH, MAINTAINING SATS ON 1LO2 VIA NC. BILATERL FOOT DEFORMITY WITH WOUNDS. WOUNDS ARE COVERED WITH FOAM DRESSINGS. PATIENT USING BEDPAN THIS SHIFT, BUT DAUGHTER ENCOURAGED HER TO GET UP TO C IF POSSIBLE. REPORTS GENERALIZED PAIN AND BILATERAL FOOT PAIN, FENTANYL ORDERED TO TREAT. FALL PRECAUTIONS IN PLACE, BUT PATIENT DOES CALL APPROPRIATELY FOR ASSISTANCE.
[2020-12-31 05:08] LABS: Hematocrit 30.8 % (33.0-51.0); Hemoglobin 9.7 g/dL (11.5-16.0); Mean Corpuscular HGB 26.5 pg (26.0-34.0); Mean Corpuscular HGB Conc 31.5 g/dL (31.5-36.5); Mean Corpuscular Volume 84 fL (80-100); Mean Platelet Volume 9.2 fL (9.1-12.4); Platelet Count 262 K/mm3 (150-400); RDW Coefficient Variation 15.4 % (11.7-14.2); RDW Standard Deviation 47.2 fL (35.1-46.3); Red Blood Cell Count 3.66 M/mm3 (3.80-5.20); White Blood Cell Count 10.81 K/mm3 (4.00-11.30)
[2020-12-31 05:24] LABS: Albumin, Blood 2.8 g/dL (3.4-5.0); Anion Gap 7 mmol/L (6-16); Blood Urea Nitrogen 33 mg/dL (8-24); Bun/Creatinine Ratio 30.3 (12.0-20.0); CO2, Blood 26 mmol/L (21-32); Calcium, Blood 9.7 mg/dL (8.5-10.1); Chloride, Blood 104 mmol/L (98-108); Creatinine, Blood 1.09 mg/dL (0.40-1.00); Glomerular Filtration Rate 51 (60-); Glucose, Blood 108 mg/dL (70-99); Phosphorus, Blood 2.9 mg/dL (2.5-4.9); Sodium, Blood 137 mmol/L (136-145)
--- NOTE | 2020-12-31 06:37 | NUR ---
SHIFT SUMMARY- PT. A&O FORGETFUL AT TIMES. C/O GENERALIZED PAIN, MEDICATED PER EMAR WITH MINIMAL EFFECT. DSG CHANGE DONE TO SULLY FEET WOUNDS, NOTED SMALL AMOUNT OF YELLOW DRAINAGE, PT. TOLERATED WELL. REPOSITIONED FOR COMFORT AND PRN WITH ATTENDS CHANGE. PT. CONT/INCONT. VSS. CALL LIGHT WITHIN REACH, SIDE RAILS, AND BED ALARM ON FOR SAFETY. WILL CONT TO MONITOR.
--- NOTE | 2020-12-31 18:41 | NUR ---
PATIENT A/OX3 TODAY ABLE TO MAKE NEEDS KNOWN. ABLE TO TRANSFER WITH FWW AND 2 ASSIST TO BSC. SLEPT MOST OF THIS SHIFT. WILL HAVE SWALLOW STUDY TOMORROW, REMAINS NPO. CLINIMIX AT 60ML/HR INFUSING. METOPROLOL GIVEN IV, B/P AND PULSE WNL. SR ON TELE, DENIES ANY CP. RHOCHI AND WHEEZES THROUHGOUT, 1LO2 TO MAINTAIN SATS. DRESSING TO FOOT WONDS REMAIN C/D/I. 20G IV TO R AC WNL. PLEASANT AND COOPERATIVE WITH CARE.
--- NOTE | 2021-01-01 05:31 | NUR ---
SHIFT SUMMARY- NO ACUTE EVENTS OVERNIGHT. PT. A&O WITH INTERMITTENT CONFUSION. PT. SCHEDULED FOR BARIUM SWALLOW TODAY HAD BEEN NPO. ON CLINIMIX, TOLERATING WELL. NO COMPLAINTS OF PAIN OF DISCOMFORT T/O THE NIGHT. APPEARED TO BED RESTING QUIETLY IN BED, NO APPARENT DISTRESS NOTED. VSS. CALL LIGHT WITHIN REACH AND SIDE RAILS UPX2. WILL CONT TO MONITOR.
--- NOTE | 2021-01-01 17:22 | NUR ---
SHIFT SUMMARY PT AxOx4 WITH OCCASIONAL CONFUSION. PLEASANT WITH CARE. PT C/O PAIN IN EXTREMITIES T/O THE DAY. MEDICATED PER EMAR. Q2 REPOSITIONS. PT DECLINED GETTING OUT OF BED TODAY FOR MEALS. SAID SHE "WASN'T FEELING WELL." HEEL PROTECTORS AND BLANKET TENT PLACED TO PROTECT FEET. REDNESS TO HEELS NOTED. BLE MEPILEX IN PLACE FOR ULCER PREVENTION. PT HAD SWALLOW STUDY TODAY. DIET ADVANCED TO EXTRA MOIST PUREE, HONEY THICK LIQUID BY SPOON. FOOD TOLERATED WELL, EXCEPT POOR APPETITE. CLINIMIX FLUIDS DC'D. PT/OT ORDERED. DAUGHTER, HARMONY, UPDATED VIA PHONE TODAY. VITALS REVIEWED. PT CURRENTLY RESTING IN BED WITH CALL LIGHT IN REACH. DENIES ANY NEEDS AT THIS TIME.
--- NOTE | 2021-01-01 17:33 | NUR ---
Met with pt for a visit. She is alert, oriented and pleasant. She has a history of aspiration pneumonia, along with CAD, COPD, Hypothyroidism, GERD, HTN, CHF and CKD stage 3, and R Charcot foot. She lives with her daughter, who is a retired RN. According to the pt, her daughter cares visual lead for daughter's own as well as for the pt. Pt is here for aspiration pneumonia, and is currently on 02 with mild dyspnea and audible crackles. She is weak, but focused on regaining her strength for when she returns home. She has a POLST of DNR status with comfort measures, as well as antibiotics for comfort. I left a copy on the front of pt's chart after reviewing it with her, and she does not wish to change her choices.
[2021-01-02 05:53] LABS: Albumin, Blood 2.6 g/dL (3.4-5.0); Anion Gap 8 mmol/L (6-16); Blood Urea Nitrogen 31 mg/dL (8-24); Bun/Creatinine Ratio 31.4 (12.0-20.0); CO2, Blood 23 mmol/L (21-32); Calcium, Blood 9.1 mg/dL (8.5-10.1); Chloride, Blood 107 mmol/L (98-108); Creatinine, Blood 0.99 mg/dL (0.40-1.00); Glomerular Filtration Rate 57 (60-); Glucose, Blood 89 mg/dL (70-99); Phosphorus, Blood 3.2 mg/dL (2.5-4.9); Sodium, Blood 138 mmol/L (136-145)
[2021-01-02 06:07] LABS: Hematocrit 31.8 % (33.0-51.0); Mean Corpuscular HGB 26.5 pg (26.0-34.0); Mean Corpuscular HGB Conc 31.4 g/dL (31.5-36.5); Mean Corpuscular Volume 84 fL (80-100); Mean Platelet Volume 9.2 fL (9.1-12.4); Platelet Count 301 K/mm3 (150-400); RDW Coefficient Variation 15.2 % (11.7-14.2); RDW Standard Deviation 46.2 fL (35.1-46.3); Red Blood Cell Count 3.78 M/mm3 (3.80-5.20); White Blood Cell Count 8.88 K/mm3 (4.00-11.30)
--- NOTE | 2021-01-02 06:49 | NUR ---
SHIFT SUMMARY PATIENT ALERT AND ORIENTED X3. WAS MEDICATED PER EMAR FOR PAIN. HAD NO COMPLAINTS OF SHORTNESS OF BREATH. NO ACUTE ISSUES NOTED OVERNIGHT. PATIENT SLEPT WELL. IV PATENT AND FLUSHED. BED IN LOWEST POSITION WITH WHEELS LOCKED AND ALARM ON. CALL LIGHT WITHIN REACH. REPORT GIVEN TO ONCOMING RN.
--- NOTE | 2021-01-02 15:20 | NUR ---
SHIFT SUMMARY PT RESTING QUIETLY AT START OF SHIFT. P/T IN TO WORK WITH PT BEFORE BREAKFAST AND LATER SPEECH TX IN TO EVAL PT WELL. PT ABLE TO AMBULATE TO BTHRM WITH P/T TODAY, HAVING BM AND INCONTINENT OF BLADDER. PT NOT EATING MUCH AND DOES REQUIRE FEEDING ASSIST TO EAT ANYTHING. PT DID C/O PAIN AT START OF SHIFT. MEDICATED PER EMAR. DISCUSSED PT'S REQUEST FOR PAIN MEDICATION WITH DR FINK; NEW ORDERS PLACED. PT WAS ON 2L NC AT START OF SHIFT; O2 SAT'S NOW AT 95% ON RA. DR FINK IN TO SEE PT TODAY. POSSIBLE D/C ON MONDAY. PT'S DAUGHTER HERE VISITING AT THIS TIME. NO C/O. DENIED FURTHER NEEDS. CALL LT IN REACH.
--- NOTE | 2021-01-03 04:17 | NUR ---
SHIFT SUMMARY PATIENT ALERT AND ORIENTED X3. WAS MEDICATED PER EMAR FOR PAIN. HAD NO COMPLAINTS OF SHORTNESS OF BREATH. PATIENT SLEPT FAIRLY WELL OVERNIGHT. IV PATENT AND FLUSHED. BED IN LOWEST POSITION WITH WHEELS LOCKED AND ALARM ON. CALL LIGHT WITHIN REACH. REPORT GIVEN TO ONCOMING RN.
[2021-01-03 05:40] LABS: Albumin, Blood 2.7 g/dL (3.4-5.0); Anion Gap 4 mmol/L (6-16); Blood Urea Nitrogen 30 mg/dL (8-24); CO2, Blood 28 mmol/L (21-32); Calcium, Blood 9.6 mg/dL (8.5-10.1); Chloride, Blood 109 mmol/L (98-108); Creatinine, Blood 1.07 mg/dL (0.40-1.00); Glomerular Filtration Rate 52 (60-); Glucose, Blood 89 mg/dL (70-99); Phosphorus, Blood 3.1 mg/dL (2.5-4.9); Potassium, Blood 3.9 mmol/L (3.5-5.5); Sodium, Blood 141 mmol/L (136-145)
--- NOTE | 2021-01-03 19:12 | NUR ---
SHIFT SUMMARY PT AWAKE MOST OF THE DAY TODAY. SEEMED TO BE A LITTLE BETTER. LUNGS IMPROVED. POSSIBLE D/C HOME TOMORROW WITH H/H. PT ABLE TO FEED HERSELF SLOWLY WITH SUPERVISION AND DID WELL FOR THE MOST PART. PT REMEMBERS TO FOLLOW SPEECH ADVICE WHEN EATING AND DRINKING. PT MEDICATED FOR C/O PAIN PER EMAR. PT'S PAIN LEVEL SEEMED TO BE A LITTLE BETTER TODAY WELL. BED BATH GIVEN, WHICH PT APPRECIATED. CALL LT IN REACH. REPORT GIVEN TO ONCOMING RN.
--- NOTE | 2021-01-04 06:47 | NUR ---
SHIFT SUMMARY PATIENT ALERT AND ORIENTED X3. WAS MEDICATED PER EMAR FOR PAIN. NO COMPLAINTS OF SHORTNESS OF BREATH. NO ACUTE ISSUES NOTED OVERNIGHT. PATIENT SLEPT WELL. IV PATENT AND FLUSHED. BED IN LOWEST POSITION WITH WHEELS LOCKED AND ALARM ON. CALL LIGHT WITHIN REACH. REPORT GIVEN TO ONCOMING RN.
[2021-01-04] MEDS ORDERED: AMOCLA500 PO (13:40)
--- NOTE | 2021-01-04 15:41 | NUR ---
PT DISCHARGED THE PTS DAUGHTER VERBALIZED UNDERSTANDING OF THE DC INSTRUCTIONS, THE PTS PRESCRIPTION WAS FAXED TO [facility], THE PT WAS TRANSFERD VIA WHEELCHAIR ACCOMPANIED BY THE MACHINE TOOL BUILDER AND HER DAUGHTER, THE PT APPEARED TO BE BREATHING EASILY ON RA AT THE TIME OF DC
== END 2021-01-04 14:33 | disposition home health service (06) | DRG 871 ==
LOC: ER 10:56 → ERHOLD 14:24 → MEDS 14:24 → ENPENDDIS 01-04 12:47 → MEDS 01-04 14:33
PROVIDERS: Emergency Medicine; Internal Medicine; Nurse Practitioner Acute Care; ADMIT Internal Medicine
DX: A41.9 Sepsis, unspecified organism (principal); J69.0 Pneumonitis due to inhalation of food and vomit; J18.9 Pneumonia, unspecified organism; J96.01 Acute respiratory failure with hypoxia; I50.22 Chronic systolic (congestive) heart failure; I13.0 Hypertensive heart and chronic kidney disease with heart failure and stage 1 through stage 4 chronic kidney disease, or unspecified chronic kidney disease; A52.16 Charcot's arthropathy (tabetic); N18.30 Chronic kidney disease, stage 3 unspecified; J44.9 Chronic obstructive pulmonary disease, unspecified; Z66 Do not resuscitate; R13.12 Dysphagia, oropharyngeal phase; E03.9 Hypothyroidism, unspecified; K21.9 Gastro-esophageal reflux disease without esophagitis; F41.9 Anxiety disorder, unspecified; E78.5 Hyperlipidemia, unspecified; G89.29 Other chronic pain; D50.9 Iron deficiency anemia, unspecified; D63.1 Anemia in chronic kidney disease; I25.10 Atherosclerotic heart disease of native coronary artery without angina pectoris; Z96.653 Presence of artificial knee joint, bilateral; G51.0 Bell's palsy; M40.209 Unspecified kyphosis, site unspecified; L97.529 Non-pressure chronic ulcer of other part of left foot with unspecified severity; L97.519 Non-pressure chronic ulcer of other part of right foot with unspecified severity; Z88.1 Allergy status to other antibiotic agents; Z88.5 Allergy status to narcotic agent; Z90.710 Acquired absence of both cervix and uterus; Z88.8 Allergy status to other drugs, medicaments and biological substances; Z90.49 Acquired absence of other specified parts of digestive tract; Z90.89 Acquired absence of other organs; Z98.890 Other specified postprocedural states; Z79.02 Long term (current) use of antithrombotics/antiplatelets; Z79.899 Other long term (current) drug therapy; Z95.5 Presence of coronary angioplasty implant and graft; Z86.718 Personal history of other venous thrombosis and embolism
CPT/HCPCS: 0241U; 36415; 70450; 71045; 74230; 80048; 80053; 80069; 82803; 83605; 83880; 84484; 85025; 85027; 87040; 92526; 92610; 92611; 93005; 93010; 93306; 94760; 96365-59; 96367; 97110; 97161; 97165; 97530; 97535; 99285-25; A9270; C9113; J0295; J0696; J1650; J3010; J7050

== ENCOUNTER 2021-09-23 14:54 | Inpatient (IN) | payer MEDICARE ==
[~2021-09-23] VITALS: Ht 147.3 cm; Wt 72.6 kg
[~2021-09-23 14:54] MED LIST changes: +ACET500 PO; +ALBU90OI61 INH; +AMOCLA500 PO; +CLOP75 PO; +DIPH50 PO; +FURO20 PO; +GABA300 PO; +LEVSOD75 PO; +LOVASTATIN40 MG PO; +Lisinopril-Hct1 EAC4 PO; +METO25ER PO; +ROPINIROLE HCL4 M1 PO; +ZOLOFT100 M4 PO
[2021-09-23 15:40] LABS: BASOPHILS ABSOLUTE AUTO 0.04 K/mm3 (0.00-0.23); BASOPHILS PERCENT AUTO 0 % (0-2); Base Excess Venous -6.9 mmol/L; Bicarbonate Venous 18.5 mmol/L (24.0-30.0); EOSINOPHILS PERCENT AUTO 0 % (0-6); Hematocrit 36.5 % (33.0-51.0); Hemoglobin 10.5 g/dL (11.5-16.0); IMMATURE GRAN ABSOLUTE AUTO 0.08 K/mm3 (0.00-0.10); IMMATURE GRAN PERCENT AUTO 0 % (0-1); LYMPHOCYTES ABSOLUTE AUTO 0.41 K/mm3 (0.84-5.20); LYMPHOCYTES PERCENT AUTO 2 % (21-46); MONOCYTES ABSOLUTE AUTO 0.96 K/mm3 (0.16-1.47); MONOCYTES PERCENT AUTO 5 % (4-13); Mean Corpuscular HGB Conc 28.8 g/dL (31.5-36.5); Mean Corpuscular Volume 83 fL (80-100); Mean Platelet Volume 9.4 fL (9.1-12.4); NEUTROPHILS ABSOLUTE AUTO 18.23 K/mm3 (1.96-9.15); NEUTROPHILS PERCENT AUTO 92 % (41-73); PCO2 Venous 52.4 mmHg (38-42); PO2 Venous 56.4 mmHg (38-42); Platelet Count 376 K/mm3 (150-400); RDW Coefficient Variation 14.9 % (11.7-14.2); RDW Standard Deviation 45.6 fL (35.1-46.3); Red Blood Cell Count 4.38 M/mm3 (3.80-5.20); White Blood Cell Count 19.72 K/mm3 (4.00-11.30); pH Blood Venous 7.21 (7.34-7.37)
[2021-09-23] MEDS ORDERED: MELATONIN5 M1 PO (15:51)
[2021-09-23 16:02] LABS: Alanine Aminotransfer (ALT/SGP 14 U/L (12-78); Albumin, Blood 2.9 g/dL (3.4-5.0); Albumin/Globulin Ratio 0.8 (0.8-1.8); Alk Phos 54 U/L (50-136); Anion Gap 9 mmol/L (6-16); Aspartate Aminotrans (AST/SGOT 16 U/L (12-37); Bilirubin, Total 0.4 mg/dL (0.1-1.0); Blood Urea Nitrogen 42 mg/dL (8-24); Bun/Creatinine Ratio 25.1 (12.0-20.0); CO2, Blood 22 mmol/L (21-32); Calcium, Blood 9.2 mg/dL (8.5-10.1); Chloride, Blood 108 mmol/L (98-108); Creatinine, Blood 1.67 mg/dL (0.40-1.00); Globulin, Blood 3.5 g/dL (2.2-4.0); Glomerular Filtration Rate 29 (60-); Glucose, Blood 138 mg/dL (70-99); Potassium, Blood 4.7 mmol/L (3.5-5.5); Sodium, Blood 139 mmol/L (136-145); Total Protein, Blood 6.4 g/dL (6.4-8.2); Troponin I <0.015 ng/mL (0.000-0.040)
[2021-09-23 16:25] LABS: Influenza A, PCR NEGATIVE (NEGATIVE); Influenza B, PCR NEGATIVE (NEGATIVE); Resp Syncytial Virus, PCR NEGATIVE (NEGATIVE); SARS-Cov-2 (COVID-19) PCR, MMC NEGATIVE (NEGATIVE)
[2021-09-23] MEDS ORDERED: OLAN2.5 PO (20:22)
[2021-09-23] MEDS ORDERED: GABA300 PO (20:33)
[2021-09-24 04:40] LABS: Hematocrit 35.3 % (33.0-51.0); Hemoglobin 9.9 g/dL (11.5-16.0); Mean Corpuscular HGB 23.7 pg (26.0-34.0); Mean Corpuscular Volume 85 fL (80-100); Mean Platelet Volume 9.4 fL (9.1-12.4); Platelet Count 286 K/mm3 (150-400); RDW Coefficient Variation 15.3 % (11.7-14.2); RDW Standard Deviation 46.7 fL (35.1-46.3); Red Blood Cell Count 4.17 M/mm3 (3.80-5.20)
[2021-09-24 05:47] LABS: Albumin, Blood 2.4 g/dL (3.4-5.0); Albumin/Globulin Ratio 0.9 (0.8-1.8); Bilirubin, Total 0.4 mg/dL (0.1-1.0); Bun/Creatinine Ratio 26.5 (12.0-20.0); Creatinine, Blood 1.66 mg/dL (0.40-1.00); Globulin, Blood 2.8 g/dL (2.2-4.0); Magnesium, Blood 1.6 mg/dL (1.6-2.4); Potassium, Blood 4.6 mmol/L (3.5-5.5); Total Protein, Blood 5.2 g/dL (6.4-8.2); Troponin I 0.023 ng/mL (0.000-0.040)
[2021-09-24 06:03] LABS: BASOPHILS PERCENT MAN 0 % (0-2); EOSINOPHILS PERCENT MAN 0 % (0-6); LYMPHOCYTES ABSOLUTE MAN 1.88 K/mm3 (0.84-5.20); LYMPHOCYTES PERCENT MAN 8 % (21-46); MONOCYTES ABSOLUTE MAN 1.41 K/mm3 (0.16-1.47); MONOCYTES PERCENT MAN 6 % (4-13); NEUTROPHILS ABSOLUTE MAN 20.29 K/mm3 (1.96-9.15); SEG NEUTROPHILS PERCENT MAN 86 % (41-73); TOTAL CELLS COUNTED 100
--- NOTE | 2021-09-24 07:32 | NUR ---
PT'S LACTIC ACID LEVEL WAS 4.7 AT ABOUT 2220, HOSPITALIST NOTIFIED AND NEW ORDERS RECEIUED. IV BOLUSES ADMINISTERED ORDERED. REPEAT LACTIC LEVELS ARE ORDERED Q6H UNTIL LEVEL IS LESS THAN 2. PT DENIES PAIN. O2 SATURATION WNL ON 6L O2 VIA NC. CONTACT PRECAUTIONS MAINTAINED-ALTHOUGH PT'S DAUGHTER, HARMONY REPORTS THAT THE PT DID NOT HAVE DIARRHEA X 2 DAYS-STATED THAT PT HAD 1 EPISODE ON 09/23/21 AND ATTRIBUTED IT TO CONSUMING PUMPKIN PIE. HARMONY AND PT UPDATED ON PLAN OF CARE. NPO STATUS MANINTAINED. [facility].
--- NOTE | 2021-09-24 17:51 | NUR ---
SHIFT SUMMARY PT REMAINS NPO AND IS IN THE PROCESS OF DECIDING WHETHER TO BECOME COMFORT CARE SO THAT SHE CAN EAT. SHE HAS BEEN TITERED DOWN TO 2L NASAL CANNULA AND IS SATTING 96%. PT REMAINS CONFUSED, BUT WAS ABLE TO SIT UP AT BEDSIDE WITH PT/OT AND FOLLOW SIMPLE COMMANDS. WILL CONTINUE TO MONITOR PT.
--- NOTE | 2021-09-24 23:14 | NUR ---
PT C/O DIFFICULTY SLEEPING AND CONTINUED GENERALIZED PAIN, DESPITE RECEIVING TYLENOL 650MG WV. PT WITH HX OF OA. PT REMAINS NPO. HOSPITALIST NOTIFIED AND NEW ORDERS RECEIVED.
--- NOTE | 2021-09-25 05:47 | NUR ---
PT C/O GENERALIZED PAIN DURING SHIFT. HOSPITALIST WAS NOTIFIED AND NEW ORDERS RECEIVED. PRN FENTANYL MORE EFFECTIVE THAN TYLENOL SUPPOSITORY. TELEMETRY MONITORING CONTINUES, SINUS RHYTHM WITH 1ST DEGREE HEART BLOCK, RATE 80s. NPO STATUS MAINTAINED. REMAINS ON SUPPLEMENTAL O2 VIA NC, O2 SATURATIONS WNL. LACTIC ACID LEVEL 1.3 AT 1818. PT'S DAUGHTER CALLED DURING SHIFT FOR UPDATES, ALL QUESTIONS AND CONCERNS WERE ADDRESSED. BED IS IN LOW POSITION WITH SAFETY PRECAUTIONS IN PLACE. WILL CONTINUE TO MONITOR.
[2021-09-25 09:10] LABS: BASOPHILS ABSOLUTE AUTO 0.02 K/mm3 (0.00-0.23); BASOPHILS PERCENT AUTO 0 % (0-2); EOSINOPHILS ABSOLUTE AUTO 0.06 K/mm3 (0.00-0.68); EOSINOPHILS PERCENT AUTO 1 % (0-6); Hematocrit 27.7 % (33.0-51.0); Hemoglobin 7.8 g/dL (11.5-16.0); IMMATURE GRAN ABSOLUTE AUTO 0.04 K/mm3 (0.00-0.10); IMMATURE GRAN PERCENT AUTO 0 % (0-1); LYMPHOCYTES ABSOLUTE AUTO 0.71 K/mm3 (0.84-5.20); LYMPHOCYTES PERCENT AUTO 7 % (21-46); MONOCYTES ABSOLUTE AUTO 0.75 K/mm3 (0.16-1.47); MONOCYTES PERCENT AUTO 7 % (4-13); Mean Corpuscular HGB 23.4 pg (26.0-34.0); Mean Corpuscular HGB Conc 28.2 g/dL (31.5-36.5); Mean Corpuscular Volume 83 fL (80-100); Mean Platelet Volume 9.7 fL (9.1-12.4); NEUTROPHILS ABSOLUTE AUTO 8.57 K/mm3 (1.96-9.15); NEUTROPHILS PERCENT AUTO 84 % (41-73); Platelet Count 249 K/mm3 (150-400); RDW Coefficient Variation 15.1 % (11.7-14.2); RDW Standard Deviation 45.7 fL (35.1-46.3); Red Blood Cell Count 3.34 M/mm3 (3.80-5.20); White Blood Cell Count 10.15 K/mm3 (4.00-11.30)
[2021-09-25 09:32] LABS: Albumin, Blood 2.1 g/dL (3.4-5.0); Albumin/Globulin Ratio 0.6 (0.8-1.8); Bilirubin, Total 0.5 mg/dL (0.1-1.0); Bun/Creatinine Ratio 31.4 (12.0-20.0); Calcium, Blood 9.1 mg/dL (8.5-10.1); Creatinine, Blood 1.18 mg/dL (0.40-1.00); Globulin, Blood 3.5 g/dL (2.2-4.0); Potassium, Blood 3.8 mmol/L (3.5-5.5); Total Protein, Blood 5.6 g/dL (6.4-8.2)
--- NOTE | 2021-09-25 16:37 | NUR ---
SHIFT SUMMARY PT SEEN BY ST AGAIN TODAY AND FAILED EVAL. REMAINS NPO. DR. DE LUNA NOTIFIED AND DID GIVE ORDER FOR ICE CHIPS TO HELP MOISTEN PTS MOUTH. CONT/INCONT OF URINE TODAY, BUT GOOD OUTPUT. NEW IV PLACED TO L ARM. LR RUNNING AT 75ML/HR. PT MEDICATED FOR PAIN TODAY. SEE EMAR. CURRENTLY, PT IS RESTING IN BED WITH EYES CLOSED. RED, NON-BLANCHABLE HEELS NOTED TODAY. HEEL PROTECTORS IN PLACE AND HEELS FLOATED WHILE IN BED. NO OTHER ACURE CHANGES IN ASSESSMENT AT THIS TIME.
[2021-09-26 04:21] LABS: BASOPHILS ABSOLUTE AUTO 0.04 K/mm3 (0.00-0.23); BASOPHILS PERCENT AUTO 1 % (0-2); EOSINOPHILS PERCENT AUTO 1 % (0-6); Hematocrit 26.8 % (33.0-51.0); Hemoglobin 7.8 g/dL (11.5-16.0); IMMATURE GRAN ABSOLUTE AUTO 0.04 K/mm3 (0.00-0.10); IMMATURE GRAN PERCENT AUTO 1 % (0-1); LYMPHOCYTES ABSOLUTE AUTO 0.81 K/mm3 (0.84-5.20); LYMPHOCYTES PERCENT AUTO 10 % (21-46); MONOCYTES ABSOLUTE AUTO 0.54 K/mm3 (0.16-1.47); MONOCYTES PERCENT AUTO 7 % (4-13); Mean Corpuscular HGB 24.1 pg (26.0-34.0); Mean Corpuscular HGB Conc 29.1 g/dL (31.5-36.5); Mean Corpuscular Volume 83 fL (80-100); Mean Platelet Volume 9.3 fL (9.1-12.4); NEUTROPHILS ABSOLUTE AUTO 6.47 K/mm3 (1.96-9.15); NEUTROPHILS PERCENT AUTO 81 % (41-73); Platelet Count 264 K/mm3 (150-400); RDW Standard Deviation 45.7 fL (35.1-46.3); Red Blood Cell Count 3.24 M/mm3 (3.80-5.20)
--- NOTE | 2021-09-26 04:28 | NUR ---
PT MOSTLY CONFUSED BUT FOLLOWS DIRECTIONS REQUESTED. SUPPLEMENTAL O2 BEING TITRATED TO LOWER QUANTITY, O2 SATURATIONS REMAIN WNL. CARDIAC TELEMETRY CONTINUED, SINUS RHYTHM WITH 1ST DEGREE AV BLOCK, RATE 70s-80s. NPO STATUS MAINTAINED. IV HYDRATION INFUSING ORDERED, IV SITE BENIGN. PT MEDICATED FOR C/O GENERALIZED PAIN PER EMAR. PT REORIENTED FREQUENTLY, REASSURANCE GIVEN WELL. IV ABX GIVEN PER EMAR. NO COUGHING OR SOB EXHIBITED. REPOSITIONED OFTEN. SAFETY PRECAUTIONS MAINTAINED. BED IN LOW POSITION WITH CALL LIGHT WITHIN EASY REACH. WILL CONTINUE TO MONITOR.
[2021-09-26 04:37] LABS: Bun/Creatinine Ratio 25.5 (12.0-20.0); C-REACTIVE PROTEIN, EXT RANGE 11.3 mg/dL (0.000-0.300); Calcium, Blood 9.2 mg/dL (8.5-10.1); Creatinine, Blood 1.1 mg/dL (0.40-1.00); Potassium, Blood 3.8 mmol/L (3.5-5.5)
--- NOTE | 2021-09-26 18:10 | NUR ---
SHIFT SUMMARY PT VERY ANXIOUS WHEN AWAKE AND LEFT ALONE. PT REORIENTED AND COMFORTED FREQUENTLY. SEE EMAR FOR PAIN DIRECTOR CONTENT MARKETING. PT CONTINUOUSLY C/O PAIN "ALL OVER". PALLIATIVE CARE SPOKE WITH PT AND HER DAUGHTER. PLAN FOR HOSPICE ON DISCHARGE DECIDED PER PTS DAUGHTER. BLOOD SUGARS STABLE. D5NS RUNNING AT 100ML/HR. NO OTHER ACUTE CHANGES IN ASSESSMENT AT THIS TIME. VS REVIEWED. PT RESTING IN BED. CALL LIGHT IN REACH.
[2021-09-27 04:57] LABS: BASOPHILS ABSOLUTE AUTO 0.03 K/mm3 (0.00-0.23); BASOPHILS PERCENT AUTO 0 % (0-2); EOSINOPHILS ABSOLUTE AUTO 0.08 K/mm3 (0.00-0.68); EOSINOPHILS PERCENT AUTO 1 % (0-6); Hematocrit 29.5 % (33.0-51.0); Hemoglobin 8.5 g/dL (11.5-16.0); IMMATURE GRAN ABSOLUTE AUTO 0.05 K/mm3 (0.00-0.10); IMMATURE GRAN PERCENT AUTO 1 % (0-1); LYMPHOCYTES PERCENT AUTO 12 % (21-46); MONOCYTES PERCENT AUTO 9 % (4-13); Mean Corpuscular HGB 23.8 pg (26.0-34.0); Mean Corpuscular HGB Conc 28.8 g/dL (31.5-36.5); Mean Corpuscular Volume 83 fL (80-100); Mean Platelet Volume 9.1 fL (9.1-12.4); NEUTROPHILS ABSOLUTE AUTO 5.33 K/mm3 (1.96-9.15); NEUTROPHILS PERCENT AUTO 77 % (41-73); Platelet Count 286 K/mm3 (150-400); RDW Coefficient Variation 14.9 % (11.7-14.2); RDW Standard Deviation 45.3 fL (35.1-46.3); Red Blood Cell Count 3.57 M/mm3 (3.80-5.20); White Blood Cell Count 6.89 K/mm3 (4.00-11.30)
--- NOTE | 2021-09-27 05:54 | NUR ---
PT IS ORIENTED TO SELF AND FAMILY WITH MILD CONFUSION. PT CALLS OUT FREQUENTLY TO MAKE NEEDS KNOW. MEDICATED VIA EMAR FOR PAIN AND AGGITATION. 1L O2 VIA NC, SATS WNL. NO COMPLAINTS OF SOB. NPO CONTINUES WITH ICE CHIPS ALLOWED. IV INFUSING AND WNL. REPOSITIONED OFTEN. BED IN LOW POSITION AND CALL LIGHT WITHIN REACH. STAFF WILL CONTINUE TO MONITOR.
[2021-09-27 06:03] LABS: Calcium, Blood 8.8 mg/dL (8.5-10.1); Creatinine, Blood 0.9 mg/dL (0.40-1.00); Magnesium, Blood 1.5 mg/dL (1.6-2.4); Potassium, Blood 3.3 mmol/L (3.5-5.5)
--- NOTE | 2021-09-27 12:54 | NUR ---
Spoke with pt's daughter Aleisha this morning, we discussed pt's current medication list, and she is in agreement with d/c of most routine maintenance medications. Pt is now on comfort care, and plan is to D/C with [facility], the agency chosen by Aleisha, daughter. Pt has a desire to eat, so she will begin on a pureed diet, with encouragement to tuck her chin. Pt does c/o pain, and her bedside RN will try roxanol first for pain, since this is most likely the medication she will be using for pain when she returns home.
--- NOTE | 2021-09-27 13:03 | NUR ---
Received referral from Palliative Care Nurse (Alayna White) on 09/27/2021. Patient is to discharge with orders for hospice and family elected [facility]. Gathered supporting documentation for referral (face sheet, labs, imaging, progress notes, palliative care note, and H&P) and sent to [facility] suppression crew leader (Chalino Billingsley) for review of hospice appropriateness and ability to accept patient onto service post discharge. Will await further information from hospice suppression crew leader regarding the above. Angelina Watkins Referral Liaison
--- NOTE | 2021-09-27 15:44 | NUR ---
Received notification from [facility] mechanical engineering officer (Alta Reyna) that patient is hospice appropriate and able to be accepted onto service post discharge. Will attempt to meet with patient and family today to further discuss the above. Will continue to monitor and follow for discharge. Angelina Watkins Referral Liaison
--- NOTE | 2021-09-27 19:04 | NUR ---
SHIFT SUMMARY PT WAS PLACED ON COMFORT CARE TODAY TO DEAL WITH PAIN AND SOB. A SECOND SWALLOW EVAL DETERMINED SHE STILL CANNOT SWALLOW. COMFORT CARE IS ALLOWING HER TO HAVE THICKENED LIQUIDS AND ANY PUREED FOODS SHE LIKES. SHE IS ON 4L NASAL CANULLA. DENIES PAIN AND SOB. SITTING UP COMFORTABLY IN BED. SHE CALLS OUT FREQUENTLY ASKING FOR HELP, BUT WHEN ASKED DENIES A NEED FOR HELP. PT IS HOPEFUL TO DISCHARGE HOME TOMORROW ON HOSPICE. WILL CONTINUE TO MONITOR.
--- NOTE | 2021-09-27 20:40 | NUR ---
PT ANUSHKA SAYS SHE HAS ABD PAIN 10 MG ROXINOL EARLIR NOT EFFECTIVE TO CONTOL 20 MG ROXINOL GIVEN, PERSON CARE COMPLETE
--- NOTE | 2021-09-27 23:41 | NUR ---
PT jodie out help me despite 10 mg sl roxinol, CO abd pain. Incont of large amt of urine. Changed & repostioned. Medicate with higher dose roxinol for comfort care. Oxygen for dyspnea.
--- NOTE | 2021-09-28 00:45 | NUR ---
Medicated for s/sx anxiety with 1 mg oral ativan. Await response.
--- NOTE | 2021-09-28 02:47 | NUR ---
86 year old PT DNR status changed to comfort measures yesterday. Medicated with roxinol 20 mg for pain and 1 mg oral ativan for anxiety with helpful effect. Planning to dc home on Hospice
--- NOTE | 2021-09-28 11:38 | NUR ---
PT's daughters in today to discuss hospice with [facility] Hospice liason Angelina. Pt appears to be resting more comfortably tody, rates her pain as a 1/10, general. She has hx of rheumatoid arthritis, and currently taking Tylenol ME three times daily. However, she is able to take pills by mouth and has prn order for Tylenol, percocet and roxanol. Spoke to Dr. Devine, request d/c of Tylenol ME as requested by pt, daughter and this RN. He agrees.
--- NOTE | 2021-09-28 15:49 | NUR ---
theraputic visit with volunteer. Washed patients face and hand rub and talked to her baout old tv shows.
--- NOTE | 2021-09-28 15:51 | NUR ---
Late Entry from 09/28/2021 at 1030: Met with patient's daughters (Aleisha Parada and Junie Dewitt) to further discuss hospice services and the election of [facility]. Patient's daughters are agreeable to the above. Discussed what hospice is (reserved for patients with a terminal diagnosis with life expectancy of 6 months or less). Discussed that some patients exceed the 6 months expectancy and stay on service and some patients stabilize and come off hospice. Patient's daughters verbalized understanding of the above. Discussed with patient's daughters that hospice service focuses on quality of life at the end of life and that rather than measuring the quantity of days, the quality of those days would be measured. Discussed with patient's daughters that with hospice service the goal would be to keep the patient out of the hospital and comfortable by managing symptoms at home. Patient's daughters verbalized understanding. Discussed the people, prescriptions, and equipment of hospice. People- discussed the team of people and their roles (RNs, chaplains, therapists, LCSWs, CNAs, and volunteers) that would be there to support not only the patient but also their family during this time. Explained to the patient's daughters that the team would be custom tailored to the patient and family's needs during this time. Patient's daughters verbalized understanding. Prescriptions- discussed that we utilize a mail order pharmacy ([facility]) to provide medications related to the hospice diagnosis and for symptom management. All other medications that patient chose to stay on would be patient's and/or patient's family's responsibility to provide and pay for. Patient's daughters verbalized understanding. Discussed that upon discharge patient would be given three prescriptions, one for morphine 20mg/mL #30mL (0.25mL - 1mL PO/SL Q1H PRN SOB/pain), one for lorazepam 0.5mg #20 (1 - 2 PO Q4H PRN anxiety), and one for hyoscyamine 0.125mg SL tablets #30 (1 SL Q2H PRN secretions). Explained to the patient's daughters that as patient would not yet be admitted to hospice service at the time of discharge those prescriptions would be patient/patient's family's responsibility to fill and pay for. Patient's daughters verbalized understanding. Equipment- discussed with patient's daughters that we contract through [facility] [employer] to provide DME such as hospital beds, commodes, etc. to patient. Wrote order for DME (over bed table, oxygen & e-tank at 1-5 LPM, and bedside commode) and sent to [facility] [employer] for delivery on Monday- 09/29/2021. Discussed with patient that [facility] does not supply the sheets for the beds. Discussed that one of two options can be used- either a twin extra-long fitted sheet OR a mendoza sized flat sheet wrapped around the pump & pad. Patient's daughters verbalized understanding. Discussed with patient's daughters that once patient was admitted onto hospice services the goal would be for them to contact us ([facility]) over contacting 911 or presenting back to the hospital/ED. Patient's daughters verbalized understanding. Discussed the tentative discharge plans for Monday- 09/29/2021 at 1030 with preferred mode of transportation- medical transport via gurney. Explained to patient's daughters that I would arrange transportation for patient. Patient's daughters verbalized understanding. Offered a chance for patient's daughters to ask questions regarding the above of which there were none. Will continue to monitor and follow as appropriate for discharge. Angelina Watkins Referral Liaison
--- NOTE | 2021-09-28 17:08 | NUR ---
SHIFT SUMMARY PTS CONDITIONS HAS DECLINED SINCE YESTERDAY. SHE IS NO LONGER COHERENT WHEN SHE SPEAKS AND IS BREATHING WITH MUCH EFFORT EVEN AFTER BEING MEDICATED. LUNGS SOUND DIM AND WET. WHEN AWOKEN PT BECOMES AGITATED AND CRIES OUT THAT SHE NEEDS TO LEAVE. CURRENTLY PT IS RESTING PEACEFULLY. WILL CONTINUE TO MONITOR.
--- NOTE | 2021-09-29 00:25 | NUR ---
86 year old Female admitted with acute resp failure hypoxia continues on comfort care. Pt has anxiety at times hollers out" help me help me". PT co pain in abd & feet. Bilat feet contractures. PT medicated with roxinol 20 mg several times and 1 mg oral ativan twice. PT resting quietly now. When awake fed yogurt & applesauce.PT on 3 l nc oxygen, had declined oxygen with rounds & PT was hollering for help & said she was having dyspnea, oxygen reapplied & PT resting comfortably.
--- NOTE | 2021-09-29 07:25 | NUR ---
MORNING ASSESSMENT: PATIENT RESTING COMFORTABLY IN BED. RESPIRATIONS ARE EVEN AND UNLABORED. FACE AND LIMBS ARE CALM AND STILL. NO MOANING OR RESTLESSNESS. PATENT APPEARS CALM AND COMFORTABLE. SKIN IS WARM BUT NOT HOT TO THE TOUCH.
[2021-09-29] MEDS ORDERED: ACET325 PO (09:03)
[2021-09-29] MEDS ORDERED: BISA10S PR (09:03)
[2021-09-29] MEDS ORDERED: ATROPINE SULFATE2 M1 SL (09:03)
[2021-09-29] MEDS ORDERED: Ativan1 MG PO (09:04)
[2021-09-29] MEDS ORDERED: HALOPERIDOL2 MG/1 M1 PO (09:04)
[2021-09-29] MEDS ORDERED: MORP20L SL (09:04)
[2021-09-29] MEDS ORDERED: PHENERGAN25 MG PR (09:05)
[2021-09-29] MEDS ORDERED: ONDA4ODT MM (09:05)
[2021-09-29] MEDS ORDERED: TRANSDERM-SCOP1 EAC8 TOP (09:05)
--- NOTE | 2021-09-29 09:57 | NUR ---
Patient is to discharge at 1030 with orders for hospice. Contacted [facility] ([facility]) on Monday- 09/28/2021 to arrange gurney transport to patient's residence. Per [facility], patient is a pay prior. Notified patient's daughter regarding this. Pick-up at 1030 will be provided by the above (pending payment). Faxed copy of face sheet, PCS form, and POLST to [facility] office per protocol. Placed copies of the above in nurse server manager for transportation department supervisor. Notified nurse youth career specialist (Lexy Jang), ACC (Shena Stone), Charge RNs (Maria Guadalupe Garza and Jessika Biggs), and bedside RN (Jyotsna Florez) of the above. All are agreeable to the above. Requested discharge orders from hospitalist (Dr. Devine). Provided hard copy prescriptions for morphine and lorazepam to patient's daughter (Aleisha Parada) on Monday- 09/28/2021. Faxed copies of discharge order and med list to [facility] nuclear reactor technician. No further interventions required. Angelina Watkins Referral Liaison
[2021-09-29 11:00] LABS: Source, Urine Catheter
[2021-09-29 11:06] LABS: Appearance, Urine Hazy (Clear); Bilirubin, Urine Neg (Neg); Blood, Urine Neg (Neg); Color, Urine Yellow (P-Yellow); Glucose Qualitative, Urine Neg (Neg); Ketones, Urine Neg (Neg); Leukocyte Esterase, Urine Neg (Neg); Nitrite, Urine Neg (Neg); Protein, Urine 2+ (Neg); Urobilinogen, Urine NORM (Normal)
[2021-09-29 11:24] LABS: Bacteria Few /hpf; Granular Casts 0-2 /lpf (0); Hyaline Casts 0-2 /lpf (0-2); Mucus Light (0-Heavy); Red Blood Cells, Urine 0-2 /hpf (0-2); Squamous Epithelial Cells Few /hpf (Few); White Blood Cells, Urine 0-2 /hpf (0-5)
--- NOTE | 2021-09-29 11:58 | NUR ---
DISCHAGE SUMMARY: PATIENT COMFORTABLE DURING MORNING. MID MORNING, PATIENT STARTED TO MOAN DURING REPOSITION. MEDICATED PER PRNS. HUTTON PLACED PRIOR TO DISHARGE FOR COMFORT. PATIENT'S DAUGHTER IN THE ROOM. DISCHARGE MEDICATIONS FAXED TO [facility] PER REQUEST. DAUGHTER REPORTED SHE ALREADY PICKED UP THE MEDICATIONS SENT TO [facility] YESTERDAY. DISCHARGE INSTRUCTIONS AND EDUCATION PROVIDED. ALL QUESTIONS ANSWERED. PATIENT DISCHARGED WITH TRANSPORT.
--- NOTE | 2021-09-29 17:08 | NUR ---
pt seen this moning before discharge. comfortable for transport.
== END 2021-09-29 11:12 | disposition hospice, home (50) | DRG 871 ==
LOC: ER 14:54 → MEDS 18:55
PROVIDERS: Emergency Medicine; ADMIT Family Medicine
DX: A41.9 Sepsis, unspecified organism (principal); J69.0 Pneumonitis due to inhalation of food and vomit; J96.21 Acute and chronic respiratory failure with hypoxia; G93.41 Metabolic encephalopathy; E87.2 Acidosis; N17.9 Acute kidney failure, unspecified; Z66 Do not resuscitate; Z51.5 Encounter for palliative care; Z20.822 Contact with and (suspected) exposure to COVID-19; I25.10 Atherosclerotic heart disease of native coronary artery without angina pectoris; K21.9 Gastro-esophageal reflux disease without esophagitis; D63.1 Anemia in chronic kidney disease; I12.9 Hypertensive chronic kidney disease with stage 1 through stage 4 chronic kidney disease, or unspecified chronic kidney disease; N18.30 Chronic kidney disease, stage 3 unspecified; E78.5 Hyperlipidemia, unspecified; G47.00 Insomnia, unspecified; M19.90 Unspecified osteoarthritis, unspecified site; E03.9 Hypothyroidism, unspecified; J44.9 Chronic obstructive pulmonary disease, unspecified; G25.81 Restless legs syndrome; K44.9 Diaphragmatic hernia without obstruction or gangrene; Z96.653 Presence of artificial knee joint, bilateral; Z87.19 Personal history of other diseases of the digestive system; Z86.718 Personal history of other venous thrombosis and embolism; Z90.710 Acquired absence of both cervix and uterus; Z90.49 Acquired absence of other specified parts of digestive tract; Z90.89 Acquired absence of other organs; Z95.5 Presence of coronary angioplasty implant and graft; Z88.1 Allergy status to other antibiotic agents; Z88.8 Allergy status to other drugs, medicaments and biological substances; Z79.02 Long term (current) use of antithrombotics/antiplatelets; Z79.899 Other long term (current) drug therapy
CPT/HCPCS: 0241U; 36415; 71045; 74176; 80048; 80053; 81001; 82803; 82947; 83605; 83735; 84145; 84484; 85025; 86140; 87040; 87086; 92526; 92610; 93005; 93010; 94640; 94760; 96365; 96366; 97162; 97165; 97530; 99285-25; A9270; J0295; J0360; J1630; J1650; J1940; J3010; J7042; J7120